=== PATIENT | male | born 1955 | race Two or more races ===

== ENCOUNTER → 2016-06-02 | Outpatient (CLI) | payer OTHER ==
--- NOTE | 2016-06-02 16:51 | RADRPT ---
PROCEDURE: XR Knees. CLINICAL INDICATION: Bilateral knee pain. TECHNIQUE: Total of six views. Frontal, patellar, and lateral views of both knees. COMPARISON: No prior study is available for comparison. FINDINGS: There is no fracture or dislocation. There is a small right knee joint effusion. There is no left knee joint effusion. There are degenerative changes with small osteophytes arising from all 3 joint compartment margins b ilaterally. There is right medial knee joint compartment narrowing. There is no lytic or blastic lesion. There is no radiopaque foreign body. IMPRESSION: 1. Moderate degenerative changes of the right knee. 2. Mild degenerative changes of the left knee. 3. Small right knee joint effusion. 4. Otherwise unremarkable images of both knees. RPTAT: QQ .Raheem Corral MD, Date Time Electronically viewed and signed by .Raheem Corral MD, on 06/02/2016 16:51 .R/
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
== END | disposition home or self-care (01) ==
LOC: HKI 17:14
DX: M25.561 Pain in right knee (principal); M25.562 Pain in left knee; M54.5 Low back pain; M17.11 Unilateral primary osteoarthritis, right knee; S83.241A Other tear of medial meniscus, current injury, right knee, initial encounter; I10 Essential (primary) hypertension; F29 Unspecified psychosis not due to a substance or known physiological condition; Z87.891 Personal history of nicotine dependence
CPT/HCPCS: 20610; 73562; Z7500; Z7610; G0463

== ENCOUNTER → 2016-06-30 | Outpatient (CLI) | payer OTHER ==
--- NOTE | 2016-07-01 03:35 | HKNOTE ---
DATE OF SERVICE: 06/30/2016 The patient comes in with his MRI scan for review. The cortisone injection I gave him into his knee at the last visit helped a great deal, but the swelling has come back. The knee is still about 60% improved pain-cueva since the injection. However, the knee continues to lock and feels unstable. An MRI scan of his right knee obtained on 05/02/[address] Lanny Krishnan as showing subtle undersurface tear of the junction of the posterior horn and body of the medial meniscus with tearin g extending into the meniscal body, moderately severe chondromalacia of the medial compartment with associated subchondral stenosis changes, chondromalacia patella with multiple fissures through the p atellar articular cartilage, moderate sized joint effusion with mild synovial hypertrophy, and a thi n superior plica. The patient continues to have significant symptoms. Symptoms are highly suggestive of a torn menisc us. The patient is advised that the MRI scan has at least a 5% chance of seeing pathology that is n ot there and of missing pathology that is there. My recommendation is that he have an arthroscopic operation on the knee since it will not improve un til the torn meniscus elements are removed. The procedure and some of the major possible complications were discussed with him in a fair amount of detail. The patient says that he would like to wait and see if the cortisone wears off at all. He will call my assistant program manager, Graeme, if and when he is ready to consider proceeding with arthroscopic surgery on the knee. Dictated By: CASSANDRA NICKERSON/GILDARDO Conf#: [id number] DID#: [id number]
== END | disposition home or self-care (01) ==
LOC: HKI 14:02
DX: M25.561 Pain in right knee (principal)
CPT/HCPCS: G0463

== ENCOUNTER → 2016-07-28 | Outpatient (CLI) | payer OTHER ==
[~2016-07-28] MED LIST: ATOR80TA75 PO; EZET10TA3 PO; FLUT16SP17 NASAL; GABA300C16 PO; METR500T14 PO; OMEP40CA6 PO; TAMS-14 PO; VENL150C94 PO
--- NOTE | 2016-07-28 18:06 | HKNOTE ---
DATE OF SERVICE: 07/28/2016 The patient comes in for preoperative evaluation for operative arthroscopy on his right knee on . He has been cleared for surgery by Dr. Candida Sharp. The procedure was discussed in a fair am ount of detail as well as postoperative course and he was given prescription to manage postoperative pain. Dictated By: CASSANDRA NICKERSON/GILDARDO Conf#: [id number] DID#: [id number]
== END | disposition home or self-care (01) ==
LOC: HKI 14:36
DX: Z01.818 Encounter for other preprocedural examination (principal); M25.461 Effusion, right knee
CPT/HCPCS: G0463

== ENCOUNTER 2016-07-29 08:47 | Day surgery (SDC) | payer OTHER ==
[~2016-07-29] VITALS: Ht 172.7 cm; Wt 81.5 kg
[2016-07-29] VITALS (12 sets, daily range): BP systolic 124–141; BP diastolic 77–89; PULSE 85–96; RESP 14–29; Ht 172.7 cm; Wt 81.5 kg
[~2016-07-29 08:47] MED LIST changes: -ATOR80TA75 PO; +EPHEDrine SULFATE 50 MG/5 ML SYG ONE; -EZET10TA3 PO; -FLUT16SP17 NASAL; -GABA300C16 PO; -METR500T14 PO; -OMEP40CA6 PO; -TAMS-14 PO; -VENL150C94 PO
[2016-07-29] MEDS ORDERED: METR500T14 PO (09:39)
[2016-07-29] MEDS ORDERED: VENL150C94 PO (09:39)
[2016-07-29] MEDS ORDERED: OMEP40CA6 PO (09:39)
[2016-07-29] MEDS ORDERED: ATOR80TA75 PO (09:40)
[2016-07-29] MEDS ORDERED: TAMS-14 PO (09:40)
[2016-07-29] MEDS ORDERED: EZET10TA3 PO (09:40)
[2016-07-29] MEDS ORDERED: FLUT16SP17 NASAL (09:41)
[2016-07-29] MEDS ORDERED: GABA300C16 PO (09:41)
[2016-07-29] MEDS ORDERED: ACETAMINOPHEN 1000MG/100ML IV 100 ML IVPB ONE (10:00)
[2016-07-29] MEDS ORDERED: LACTATED RINGER'S 1,000 ML IV* SCH (10:00)
[2016-07-29] MEDS ORDERED: LANSOPRAZOLE 30 MG CAP PO ONE (10:00)
[2016-07-29] MEDS ORDERED: ONDANSETRON 4 MG INJ IV ONE (10:00)
[2016-07-29] MEDS ORDERED: CELECOXIB 200 MG CAP PO ONE (10:00)
[2016-07-29] MEDS ORDERED: VANCOMYCIN 1 GM (PMX) 250 ML IVPB ONE (10:00)
[2016-07-29] MEDS ORDERED: oxyCODONE (CR) 10 MG TAB [oxyCONTIN] PO ONE (10:00)
[2016-07-29] MEDS ORDERED: DEXAMETHASONE 4 MG/ML 1 ML INJ IV ONE (10:00)
--- NOTE | 2016-07-29 11:47 | HPN ---
Date/Time of Note Date/Time of Note DATE: 07/29/16 TIME: 11:46 Interval H&P Admission Note Pt. seen H&P reviewed: No system changes FABIEN BUNCH PA-C Jul 29, 2016 11:47
[2016-07-29] MEDS ORDERED: ROPIVACAINE 0.5 % 30 ML VIAL ONE (12:01)
[2016-07-29] MEDS ORDERED: BUPIVACAINE 0.25%/EPI (SDV) 30 ML INJ ONE (12:01)
[2016-07-29] MEDS ORDERED: KETOROLAC 30 MG INJ ONE (12:02)
[2016-07-29] MEDS ORDERED: morphine SULFATE/PF (10 MG/10 ML) INJ ONE (12:02)
[2016-07-29] MEDS ORDERED: LIDOCAINE 2% (SDV) 5 ML INJ ONE (12:14)
[2016-07-29] MEDS ORDERED: PROPOFOL 20 ML ONE (12:14)
[2016-07-29] MEDS ORDERED: MEPERIDINE 100 MG INJ ONE (12:15)
[2016-07-29] MEDS ORDERED: MEPERIDINE 25 MG INJ IV PRN (13:00)
[2016-07-29] MEDS ORDERED: MIDAZOLAM 1 MG/ML 2 ML INJ IV PRN (13:00)
[2016-07-29] MEDS ORDERED: FENTAnyl 50 MCG/ML VIAL IV PRN ×2 (13:00)
[2016-07-29] MEDS ORDERED: METOCLOPRAMIDE 10 MG INJ IV PRN (13:00)
[2016-07-29] MEDS ORDERED: ONDANSETRON 4 MG INJ IV PRN ×2 (13:00→13:30)
[2016-07-29] MEDS ORDERED: DIPHENHYDRAMINE 50 MG INJ IV PRN (13:00)
[2016-07-29] MEDS ORDERED: morphine (1 MG/ML) 10ML SYRINGE IV PRN (13:00)
[2016-07-29] MEDS ORDERED: HYDROCODONE/APAP (10/325) TAB PO PRN (13:30)
[2016-07-29] MEDS ORDERED: morphine 10 MG INJ IV PRN (13:30)
[2016-07-29] MEDS ORDERED: HYDROCODONE/APAP (5/325) TAB PO PRN ×2 (13:30)
[2016-07-29] MEDS ORDERED: ACETAMINOPHEN 1000MG/100ML IV 100 ML IVPB SCH (13:30)
[2016-07-29] MEDS: morphine (1 MG/ML) 10ML SYRINGE IV PRN ×2 (13:39→13:54)
--- NOTE | 2016-07-29 14:28 | OPR ---
DATE OF OPERATION: 07/29/2016 PREOPERATIVE DIAGNOSES: 1. Torn medial meniscus of the right knee. 2. Degenerative arthritis of the right knee. POSTOPERATIVE DIAGNOSES: 1. Compound tears of the posterior two-thirds of the medial meniscus. 2. Advanced degenerative changes of the medial compartment of the knee. 3. Moderate degenerative changes of the lateral compartment of the knee and patellofemoral joint. PROCEDURE PERFORMED: 1. Diagnostic arthroscopy. 2. Partial medial meniscectomy. 3. Abrasion chondroplasty. 4. Partial lateral meniscectomy. SURGEON: Alexys Hay MD RN PSYCHIATRIC: NOÉ Pires ANESTHESIOLOGIST: Rom Watters MD FINDINGS AT SURGERY: The patella and trochlear groove appeared fairly normal in appearance. The la teral tibial plateau and lateral femoral condyle were quite markedly arthritic with exposed eburnate d subchondral bone in places and large areas of eroded articular cartilage. There were compound tea rs of the posterior horn of the medial meniscus including horizontal cleavage tears and vertical tea rs. The lateral meniscus showed compound degenerative changes along the entire medial edge of the m eniscus. The lateral femoral condyle showed extensive erosions on the weightbearing surface with sh eets of unstable articular cartilage. DESCRIPTION OF PROCEDURE: Under general anesthetic, the right leg was prepped and draped in the usu al sterile fashion. Standard inferomedial and inferolateral portals were used. The knee was system atically inspected and the above findings were noted. Using a variety of basket forceps and the motorized intra-articular shaver, a partial medial menisce ctomy was performed. The remaining meniscus was balanced and stable. Light abrasion chondroplasty was performed on unstable articular cartilage on the medial femoral condyle, as well as on the media l tibial plateau. The camera was moved to the lateral compartment. The cruciate ligaments were noted to be intact. T he lateral compartment appeared at first to be fairly normal in appearance with regard to the articu lar surfaces, but it soon became apparent that although there were some areas with good articular ca rtilage, there were others where the cartilage was eroded and unstable. The articular surface of th e tibia in particular showed quite marked degenerative changes. The lateral meniscus had multiple c ompound tears along its inner edge. Using a variety of basket forceps and the motorized intra-artic ular shaver, the edge was trimmed back until it was stable and smooth. At the end of the procedure, the knee was copiously irrigated to remove all contained fragments. A tourniquet was not used. There was no bleeding during the surgery. The wounds were closed using interrupted nylon. The usual sterile dressings were applied. The quinn ent was returned to recovery room in stable condition. There were no problems or complications as f ar as is known. Dictated By: ALEXYS NICKERSON/GILDARDO Conf#: [id number] DID#: [id number]
== END 2016-07-29 15:15 | disposition home or self-care (01) ==
LOC: SDS 08:47
DX: M23.221 Derangement of posterior horn of medial meniscus due to old tear or injury, right knee (principal); M17.11 Unilateral primary osteoarthritis, right knee; E78.5 Hyperlipidemia, unspecified; F41.8 Other specified anxiety disorders
CPT/HCPCS: 29880; J0131; J1100; J1885; J2175; J2270; J2274; J2405; J2795; J3370; Z7512; Z7610

== ENCOUNTER → 2016-08-02 | Outpatient (CLI) | payer OTHER ==
[~2016-08-02] MED LIST changes: +ATOR80TA75 PO; -EPHEDrine SULFATE 50 MG/5 ML SYG ONE; +EZET10TA3 PO; +FLUT16SP17 NASAL; +GABA300C16 PO; +METR500T14 PO; +OMEP40CA6 PO; +TAMS-14 PO; +VENL150C94 PO
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
== END | disposition home or self-care (01) ==
LOC: HKI 14:03
DX: M25.561 Pain in right knee (principal)
CPT/HCPCS: 20610; Z7500; Z7610; G0463

== ENCOUNTER → 2016-08-09 | Outpatient (CLI) | payer OTHER ==
--- NOTE | 2016-08-09 15:24 | PN ---
Date/Time of Note Date/Time of Note DATE: 08/09/16 TIME: 15:20 Outpatient Progress Note Chief Complaint Postop status post right knee arthroscopy HPI 60-year-old male presents today for postoperative visit status post diagnostic arthroscopy, partial medial and lateral meniscectomy as well as abrasion chondroplasty performed on 07/29/2016. Patient called into the office on 2016 stating that he was in severe pain. On his last postoperative visit on 08/02, cortisone injection was performed. Cortisone injections provided no relief. He was taking Nicolaus 10/325 mg for pain control and he states that it is not helping. Patient continues with antalgic gait. Pain is constant and ranges from a 6-8/10 on the pain scale. Denies any falls or repeat injury. Patient would like to pursue total knee arthroplasty at this time. Review of Systems Const: No Fever, no chills, no Fatigue, normal appetite, no diaphoresis. Resp: No SOB, no wheezing, no chest pain. CV: No chest pain, no palpitaions, no VARMA. Physical Exam Blood pressure is 135/84, temperature is 90.7, pulse is 106, respiratory rate is 12, height is 5 foot 8 inches, weight is 190 pounds General Appearance: well-developed, well-nourished, in mild acute distress. Right knee: Sutures are clean dry and intact. No complications to the wound on inspection. Patient is able to flex up to 115 with about 5 lag from full extension. No tenderness to palpation on exam today. Mild edema to the right knee. Antalgic gait on exam. Abnormal gait as well. Allergies Coded Allergies: No Known Allergy (Unverified , 07/29/16) Assessment/Plan * Suture removal performed today and Steri-Strips applied. * Prescription for Percocet 10/325 mg was provided for patient to take as needed every 6-8 hours #45 tablets on 08/05/2016 patient called in to office. Patient was advised to curing pickling packer prescription when he was last spoken to a patient has yet to curing pickling packer prescription. The prescription was provided for patient today. Naproxen 500 mg was also provided for the patient twice daily. He was previously taking Mobic 7.5 mg which is providing little to no relief. Advised to discontinue Mobic before starting naproxen. Patient denies any GI pain with medication. * Dr. Hay was present for examination and discussed with patient today that given he has had recent cortisone injection last week it would be a minimum of 2-3 months before pursuit of total knee arthroplasty would be performed. Information regarding the surgery was provided for the patient today and patient was advised to call in the future to schedule specific date in 2-3 months especially if he continues with severe constant pain and limited functionality. * Patient will follow-up as needed likely for preoperative examination when he is ready to pursue with total joint arthroplasty. * Prescription for outpatient physical therapy provided today but patient respectfully declines. Patient feels that physical therapy will not help him. Dr. Hay was present for examination and agrees with plan. Medications Home Meds Reported Medications Fluticasone Propionate* (Fluticasone Propionate* Nasal) 50 Mcg/[place] - 16 Gm [place].susp, 1 SPRAY NASAL DAILY, #1 BOTTLE TO EACH NOSTRIL 07/29/16 Gabapentin* (Gabapentin*) 300 Mg Capsule, 300 MG PO BID Y for PAIN, #60 CAP 07/29/16 Tamsulosin Hcl* (Flomax*) 0.4 Mg Cap.er.24h, 0.4 MG PO DAILY, CAP 07/29/16 Atorvastatin* (Atorvastatin*) 80 Mg Tablet, 80 MG PO QHS, #30 TAB 07/29/16 Ezetimibe* (Zetia*) 10 Mg Tablet, 10 MG PO HS, TAB 07/29/16 Omeprazole* (Omeprazole*) 40 Mg Capsule.dr, 40 MG PO DAILY, #30 CAP 07/29/16 Metronidazole* (Metronidazole*) 500 Mg Tablet, 500 MG PO DAILY, TAB 07/29/16 Venlafaxine Hcl* (Venlafaxine Hcl ER*) 150 Mg Cap.er.24h, 150 MG PO DAILY, CAP 07/29/16 FABIEN BUNCH PA-C Aug 09, 2016 15:24
== END | disposition home or self-care (01) ==
LOC: HKI 13:49
DX: Z47.1 Aftercare following joint replacement surgery (principal); Z96.651 Presence of right artificial knee joint; Z48.02 Encounter for removal of sutures

== ENCOUNTER → 2016-09-14 | Outpatient (CLI) | END | disposition home or self-care (01) | DX: M17.11 Unilateral primary osteoarthritis, right knee (principal); M17.12 Unilateral primary osteoarthritis, left knee ==

== ENCOUNTER → 2016-09-22 | Outpatient (CLI) | payer OTHER ==
[~2016-09-22] MED LIST changes: +CEPH500C PO; +OXYC10TA63 PO
--- NOTE | 2016-09-28 07:28 | HKNOTE ---
DATE OF SERVICE: 09/22/2016 scheduled to have a right total hip replacement on 09/27/2016. He is being cleared for surgery by Dr. Tayo Sharp. He did not give any blood for autotransfusion. He understands the risks associated with using hospital blood. He is agreeable to using hospital blood if needed. Numerous questions were asked and answered. Dictated By: Alexys Hay MD /jose f/alesha /Document#: [id number]
== END | disposition home or self-care (01) ==
LOC: HKI 14:33
DX: Z01.818 Encounter for other preprocedural examination (principal)
CPT/HCPCS: G0463

== ENCOUNTER 2016-09-27 05:15 | Inpatient (IN) | payer OTHER ==
[2016-09-27] VITALS (17 sets, daily range): BP systolic 104–142; BP diastolic 61–83; PULSE 72–89; RESP 12–22; Ht 172.7 cm; Wt 79.5 kg
[~2016-09-27] VITALS: Ht 172.7 cm; Wt 79.5 kg
[~2016-09-27 05:15] MED LIST changes: -CEPH500C PO; -OXYC10TA63 PO
[2016-09-27] MEDS: TRANEXAMIC ACID IRR SCH ×4 (06:00→08:20)
[2016-09-27] MEDS ORDERED: SOD CHLORIDE 0.9% IVPB ONE (06:00)
[2016-09-27] MEDS ORDERED: ONDANSETRON 4 MG INJ IV ONE (06:00)
[2016-09-27] MEDS ORDERED: TRANEXAMIC ACID IVPB ONE (06:00)
[2016-09-27] MEDS ORDERED: LACTATED RINGER'S 1,000 ML IV* SCH (06:00)
[2016-09-27] MEDS ORDERED: CELECOXIB 200 MG CAP PO ONE (06:00)
[2016-09-27] MEDS: KNEE PAIN COCKTAIL VANCO INJ SCH ×12 (06:00→08:20)
[2016-09-27] MEDS ORDERED: oxyCODONE (CR) 10 MG TAB [oxyCONTIN] PO ONE (06:00)
[2016-09-27] MEDS ORDERED: LANSOPRAZOLE 30 MG CAP PO ONE (06:00)
[2016-09-27] MEDS ORDERED: ACETAMINOPHEN 1000MG/100ML IV 100 ML IVPB ONE (06:00)
[2016-09-27] MEDS ORDERED: DEXAMETHASONE 4 MG/ML 1 ML INJ IV ONE (06:00)
[2016-09-27] MEDS: SOD CHLORIDE 0.9% IRR SCH ×4 (06:00→08:20)
[2016-09-27] MEDS ORDERED: VANCOMYCIN 1 GM (PMX) 250 ML IVPB ONE (06:09)
[2016-09-27] MEDS ORDERED: BACITRACIN 50000 UNITS INJ ONE (06:40)
[2016-09-27] MEDS ORDERED: POLYMYXIN B 500000 UNIT INJ ONE (06:51)
[2016-09-27] MEDS ORDERED: VANCOMYCIN 1 GM INJ ONE (06:51)
[2016-09-27] MEDS ORDERED: TOBRAMYCIN 1.2 GM POWDER ONE (06:52)
[2016-09-27] MEDS ORDERED: METHYLENE BLUE 1% 10 ML INJ ONE (06:52)
[2016-09-27] MEDS ORDERED: BUPIVACAINE 0.25%/EPI (SDV) 30 ML INJ ONE (06:52)
[2016-09-27] MEDS ORDERED: ROPIVACAINE 0.2% 100 ML ONE (06:52)
--- NOTE | 2016-09-27 07:09 | HPN ---
Date/Time of Note Date/Time of Note DATE: 09/27/16 TIME: 07:09 Interval H&P Admission Note Pt. seen H&P reviewed: No system changes FABIEN BUNCH PA-C Sep 27, 2016 07:09
[2016-09-27] MEDS ORDERED: PROPOFOL 20 ML ONE (07:11)
[2016-09-27] MEDS ORDERED: BUPIVACAINE 0.5%/EPI (SDV) 30 ML INJ ONE (07:11)
[2016-09-27] MEDS ORDERED: LIDOCAINE 2% (SDV) 5 ML INJ ONE (07:11)
[2016-09-27] MEDS ORDERED: OXYC10TA63 PO (07:18)
[2016-09-27] MEDS ORDERED: ROPIVACAINE 0.2% 100ML BAG INJ ONE (08:21)
[2016-09-27] MEDS ORDERED: EPHEDrine SULFATE 50 MG/5 ML SYG ONE (09:29)
[2016-09-27 10:25] LABS: SYN FLD MN % 82.9 &; SYN FLD PMN % 17.1 % (0.0-25.0); SYN FLD WBC 128 /cmm (0-150)
[2016-09-27] MEDS ORDERED: ROCURONIUM 50 MG INJ ONE (10:30)
[2016-09-27] MEDS ORDERED: MIDAZOLAM 1 MG/ML 2 ML INJ IV PRN (11:00)
[2016-09-27] MEDS ORDERED: METOCLOPRAMIDE 10 MG INJ IV PRN (11:00)
[2016-09-27] MEDS ORDERED: MEPERIDINE 25 MG INJ IV PRN (11:00)
[2016-09-27] MEDS ORDERED: EPHEDrine SULFATE 50 MG/5 ML SYG IV PRN (11:00)
[2016-09-27] MEDS ORDERED: HYDROmorphONE (0.2 MG/ML) 10ML SYG IV PRN ×3 (11:00)
[2016-09-27] MEDS ORDERED: ONDANSETRON 4 MG INJ IV PRN ×2 (11:00→16:30)
[2016-09-27] MEDS ORDERED: DIPHENHYDRAMINE 50 MG INJ IV PRN (11:00)
[2016-09-27] MEDS ORDERED: OXYCODONE/ACETAMINOPHEN (5/325) TAB PO PRN ×2 (11:00)
[2016-09-27] MEDS ORDERED: LABETALOL HCL 20MG INJ IV PRN (11:00)
[2016-09-27] MEDS ORDERED: FENTAnyl 50 MCG/ML VIAL IV PRN ×3 (11:00)
--- NOTE | 2016-09-27 11:09 | OPR ---
Date/Time of Note Date/Time of Note DATE: 09/27/16 TIME: 11:07 Operative Report Preoperative Diagnosis Severe right knee osteoarthritis Postoperative Diagnosis Severe degenerative right knee osteoarthritis Operation/Procedure Performed Right total knee arthroplasty Surgeon: CASSANDRA RAY MD optometry assistant: FABIEN BUNCH PA-C Anesthesia: general, epidural Estimated Blood Loss: 100 - 150 ml's Complications: None FABIEN BUNCH PA-C Sep 27, 2016 11:09
--- NOTE | 2016-09-27 11:15 | OPR ---
Date/Time of Note Date/Time of Note DATE: 09/27/16 TIME: 11:10 Operative Report Free Text/Dictation Date of Operation: [September 27, 2016] Surgeon: Alexys Hay MD Housekeeper Head: Fabien Bunch PA-C Anesthesiologist: [Dr. Watters] Preoperative Diagnosis: Exceedingly severe degenerative osteoarthritis of the [ right] knee. Postoperative Diagnosis: Exceedingly severe degenerative osteoarthritis of the right knee. Right Operation Performed: Total knee replacement (arthroplasty of the knee, condylar plateau medial and lateral compartments with patella resurfacing, CPT 82243). Justification for Surgery: The knee was found to have an end-stage osteoarthritis. The patient is a very active 60-year-old diffuse lifestyles markedly affected by the arthritic knee. An extensive course of conservative care has been tried prior to embarking on the knee replacement operation. There can be no reasonable expectation that any further conservative treatment will make any improvement to this patient's pain level and lifestyle. The risks and complications of the surgery were discussed with the patient at the preoperative visit as well as the risks and possible complications of blood transfusion using hospital blood. The patient is agreeable to using hospital blood if needed. Description of Procedure: The patient was given intravenous antibiotics 1 hour prior to surgery. An epidural anesthetic was initiated in the ICU holding area. The patient was taken to the operating room and given a light general anesthetic. The leg, foot, and ankle were prepared and draped in the usual sterile fashion. The center of the ankle was marked at the midpoint between the 2 malleoli with a sterile marking pen. A tourniquet around the thigh was inflated to 250 mm mmHg after the leg had been exsanguinated using an Esmarch bandage. The tourniquet was inflated at the initiation of procedure for a short period and was then again reinflated at the time of cementing the components parts. The total tourniquet time was 56 minute minutes. A longitudinal incision was made over the anterior aspect of the knee. The incision extended from the tibial tubercle to a point just above the patella. The medial capsule was exposed by sharp and blunt dissection, and was incised inch medial to the patella. A marking stitch was set on each side of the incision at the midpoint of the capsule so as to enable accurate reapproximation at the end of the operation. A vastus split was made in the vastus medialis extending from the superior pole of the patella for approximately 5 cm between the line with the muscle fibers. The ends of the muscle split at the patella were marked with a marking stitch on each side for later accurate reapproximation. The patella was reflected laterally and osteophytes around the brim of the patella were removed. Osteophytes along the lateral femoral condyle were removed so as to facilitate lateral reflection of the patella. Posterior medial osteophytes were removed on the lateral side as well, Sastry free of the lateral collateral ligament. Medial femoral osteophytes and posteromedial femoral osteophytes were also removed at this time. This allowed for the knee to be brought into a more normal alignment. A segment of bone was cut from the articular surface of the patella using a caliper to determine the exact thickness to be removed. The remaining thickness of the patella was 16mm mm. The knee was flexed, and the patella was displaced laterally without eversion. Osteophyte in the femoral notch were removed. The remnants of the medial and lateral menisci were excised and the cruciate ligaments were excised. The medial collateral ligament was elevated as an osteo -periosteal flap from the proximal tibia. The distal end of the medial collateral ligament remained attached to the tibia throughout the operation. The tibia was retracted forward with Hohmann retractor, inserted posterior to the midpoint of the proximal tibia. The tibial jig was set in place in such a way as to align longitudinally with the anterior tibial spine, with the junction of the middle and medial 2/3 of the patella tendon and with the posterior intercondylar eminence of the tibia. An AP and lateral x-ray was obtained with the ligament jig in place. This showed that the alignment was satisfactory after some slight adjustments were made. The posterior slope of the tibia was set at 6 degrees. The tibial cutting block was attached to the proximal tibia with 2 Steinmann pins. An external alignment eulalio was placed and the cutting block to confirm the alignment of the cutting block. An Renaldo Wing feeler gauge was now placed on the superior aspect of the cutting block to further confirm the posterior slope of the tibia in the depths of the cut to be made. An oscillating saw was used to remove an appropriate amount of bone from the proximal tibia with the healthy side being used to measure the cutting depth. The lateral femoral condyle of the distal femur was measured to determine the appropriate size for the femoral component. The anterior condyle of the femur was partially removed with a rongeur. A medium size cutting block was attached to the distal femur with 2 Steinmann pins through the pinholes in the block. The external alignment jig of this cutting block was lined up with the anterior surface of the femur and a central intercondylar hole for the intra -medullary eulalio was drilled into the hole and the alignment block. The block was removed. A long Water pik nozzle was used to flush fat from the intramedullary canal. The appropriately sized cutting block was now attached to the femur by means of intramedullary eulalio. The linking guide was inserted into the slot in the base of the femoral cutting block with the knee set at 90 degrees of flexion and with the linking guide set flush with the proximal tibial cut in order to set the appropriate rotational alignment on the femoral cutting block. Ligament balance was checked at this point and was found to be very satisfactory. Once the rotational alignment had been determined, and the ligaments found to be balanced, the femoral cutting block was secured to the distal femur with 2 Steinmann pins. The anterior and posterior cuts of the distal femur were made off the femoral cutting block. The cutting block was removed and a spacer block was used to measure the flexion gap which was found to be 12.5 mm. The same block size without the femoral element was used with the leg extension to determine the amount of distal femur to be removed in the transverse plane. A 5 degree distal cutting block was now set on the femoral entry intramedullary eulalio, and the eulalio was inserted into the intramedullary canal. The appropriate amount of bone to be removed was determined. The femoral cutting block was pinned to the anterior surface of the femur with 2 Steinmann pins. The appropriate amount of bone was resected off the distal femur to give an extension gap equal to the thickness of the flexion gap. The cut needed to be repeated after initial cut in order to produce an extension gap the same size of the flexion gap. By using the appropriate cutting blocks, the rest of the femoral cuts were made. The femoral trial component was installed and was found to fit perfectly. The femoral trial component was removed. The proximal tibia was sized, and the appropriate tibial tray selected. The central fixation hole in the tibia was made using the tibial tray template and the appropriate instruments. The femoral tibial trials and the trial tibial insert were installed, and the patella was prepared to accept the 35 mm sized dome component. The trial components were all removed. The tourniquet was inflated. Soft tissues around the knee, especially the posterior capsule, were injected with mixture of Naropin, Toradol, morphine, and clonidine. The cut surfaces of the bones were cleaned with pulsatile Water Jet lavage and thoroughly dried. Sclerotic bone surfaces were drilled with a 1/8-inch drill. The tibial trial component was installed with the methyl methacrylate cement followed by the femoral component and finally the patellar component. Cement was used on all 3 components. The cement was finger packed into the cut surfaces of the bone and pressurized with a rubber dam in order to get good interdigitation of the cement into the bone. A lateral x-ray of the knee was obtained while the cement was hardening with the anticipated appropriate spacer trial in place. This showed that the knee was in full extension. Once the cement was hard, all extraneous cement was removed. The cut edges of the medial capsule were held together at the midpoint with a towel clip, and the knee was put through a full range of motion. The patella was found to track satisfactorily. A lateral release was not required. At this point, the patella was round to track very well in the patellar groove of the femoral component. The knee was frequently irrigated with normal saline containing antibiotics with pulsatile lavage throughout the entire operation as a prophylactic measure against infection. Once the cement was hard, the tourniquet was released. Bleeding points were cauterized. The total tourniquet time was 56 minutes. The patient's vital signs remained stable throughout the operation. The permanent rotating bearing was installed. Superficial and deep Hemovac drains were set in place. The wound was closed using interrupted Vicryl on the capsule with FiberWire used strategic points such as the attachment of the distal ends of the vastus medialis split, and the tibial tendon was also attached to the osteo--periosteal flap with FiberWire. The rest of the medial capsule was closed with interrupted Vicryl. A subcuticular stitch was inserted and loreto were used on the skin. The usual sterile dressings were applied. A Javier-Perrin compression dressing was applied after sterile cooling pad had been set in place against the deep tissue by sterile cast padding. The patient's condition at the end of the procedure was satisfactory. Vital signs remained stable throughout the operation. The patient returned to the recovery room in stable condition. X-rays were obtained in the recovery room. Calf pumps were applied to both legs in the operating room. There were no problems or complications as far as we know. The sponge and instrument count were correct. Component Information: Knee Implant Type: LCS. 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 Total Tourniquet Time: 56 minutes Total Blood Loss: 150 cc Dictacted By: Alexys Hay MD Surgeon: ALEXYS HAY MD ice cream freezer assistant: FABIEN BUNCH PA-C Anesthesia: general, epidural Estimated Blood Loss: 100 - 150 ml's Complications: None ALEXYS HAY MD Sep 27, 2016 11:15
--- NOTE | 2016-09-27 11:19 | PDOCDIS ---
Discharge Instructions DIAGNOSIS Discharge Diagnosis Status post right total knee arthroplasty CONDITION Patient Condition: Stable HOME CARE INSTRUCTIONS: Diet Instructions: Regular ACTIVITY: Activity Restrictions: Slowly Increase Activity Rest between Activity Avoid heavy lifting No Sexual Activity Do not Drive Do not operate Machinery Do not operate Power Tool Avoid Heavy Housework Keep Limb Elevated (Use ice modalities while leg is elevated.) Weight Bearing (As tolerated with front wheeled walker) Bathing Restrictions: Shower (Using Tegaderm with pad. Apply pad prior to shower. After shower make sure areas completely dry before removing. Repeat the steps each day until loreto are removed postoperatively around 10 days.) FOLLOW UP/APPOINTMENTS Follow-up Plan 10/18/2016 at 2:15 PM FABIEN BUNCH PA-C Sep 27, 2016 11:19
[2016-09-27 11:23] LABS: SYN FLD SOURCE RIGHT KNEE
[2016-09-27 11:24] LABS: SYN FLD CLARITY HAZY; SYN FLD CRYSTALS NO CRYSTALS SEEN (None seen); SYN FLD VOLUME 7.5 mL (0-3.5)
[2016-09-27 11:25] LABS: SYN FLD COLOR LIGHT YELLOW
[2016-09-27] MEDS ORDERED: oxyCODONE 5 MG TAB PO PRN ×2 (11:30)
[2016-09-27] MEDS ORDERED: ASPIRIN (EC) 325 MG TAB PO ONE (11:30)
[2016-09-27] MEDS ORDERED: BETHANECHOL 25 MG TAB PO PRN (11:30)
[2016-09-27] MEDS ORDERED: BISACODYL 10 MG SUPP PR PRN ×2 (11:30→16:30)
[2016-09-27] MEDS ORDERED: NALOXONE (0.4 MG/ML) INJ IV PRN (11:30)
[2016-09-27] MEDS ORDERED: ZOLPIDEM 5 MG TAB PO PRN (11:30)
[2016-09-27] MEDS ORDERED: COUMADIN NOTE XX SCH (11:30)
[2016-09-27] MEDS ORDERED: SENNA/DOCUSATE NA (8.6MG/50MG) TAB PO PRN (11:30)
[2016-09-27] MEDS ORDERED: MAGNESIUM HYDROXIDE 30ML CUP PO PRN ×2 (11:30→16:30)
[2016-09-27] MEDS ORDERED: HYDROmorphONE 0.2 MG/ML PCA IV PRN (11:30)
[2016-09-27] MEDS ORDERED: NA PHOSPHATE/BIPHOS 133 ML ENEMA PR PRN (11:30)
[2016-09-27] MEDS ORDERED: MEPERIDINE 10 MG/ML 30 ML PCA IV PRN (11:30)
[2016-09-27] MEDS ORDERED: DIPHENHYDRAMINE 50 MG INJ IM PRN (11:30)
[2016-09-27] MEDS ORDERED: TRANEXAMIC ACID 800 MG in SOD CHLORIDE 0.9% 100 ML IVPB ONE ×4 (11:30)
[2016-09-27] MEDS ORDERED: DOCUSATE SODIUM 100 MG CAP PO ONE (11:30)
[2016-09-27] MEDS: ONDANSETRON 4 MG INJ IV SCH ×3 (12:00→23:13)
[2016-09-27] MEDS: CEFAZOLIN 1 GM/50 ML (PMX) 50 ML IVPB SCH ×2 (12:00→20:42)
[2016-09-27] MEDS: ACETAMINOPHEN 1000MG/100ML IV 100 ML IVPB SCH ×2 (12:06→20:02)
--- NOTE | 2016-09-27 12:53 | RADRPT ---
PROCEDURE: XR Knee. CLINICAL INDICATION: Postop knee replacement. TECHNIQUE: Right knee x-rays, 2 views. COMPARISON: 09/14/2016. FINDINGS: Knee arthroplasty hardware is now in place. Surgical drains are also present. Postoperative air an d edema are seen within the immediate surrounding soft tissues. Midline surgical loreto are in lyndsey ce. The knee joint is well maintained. IMPRESSION: Surgical changes compatible with knee arthroplasty. RPTAT: HLST .Gina Diaz MD, MD Date Time Electronically viewed and signed by .Gina Diaz MD, MD on 09/27/2016 12:53 .T/
--- NOTE | 2016-09-27 12:55 | RADRPT ---
PROCEDURE: XR Knee. CLINICAL INDICATION: Knee replacement. TECHNIQUE: Right knee x-rays, AP and cross-table lateral intraoperative views. COMPARISON: 09/14/2016. FINDINGS: Knee arthroplasty hardware is now in place within the distal femur and proximal tibia. Alignment is well maintained. Surgical instrumentation is seen within the anterior soft tissues. IMPRESSION: Surgical changes compatible with knee replacement. RPTAT: HLST .Gina Diaz MD, MD Date Time Electronically viewed and signed by .Gina Diaz MD, on 09/27/2016 12:55 .T/
[2016-09-27] MEDS: DEXTROSE 5%-LR 1,000 ML IV SCH ×2 (14:47→23:39)
[2016-09-27] MEDS ORDERED: DOCUSATE SODIUM 100 MG CAP PO PRN (16:30)
[2016-09-27] MEDS ORDERED: ACETAMINOPHEN 325 MG TAB PO PRN (16:30)
[2016-09-27] MEDS ORDERED: HYDROCODONE/APAP (5/325) TAB PO PRN ×2 (16:30)
[2016-09-27] MEDS ORDERED: ACETAMINOPHEN 650 MG SUPP PR PRN (16:30)
[2016-09-27] MEDS ORDERED: NACL 0.9% 3 ML SYG IV SCH (16:30)
--- NOTE | 2016-09-27 16:31 | HP ---
Date/Time of Note Date/Time of Note CONSULT NOTE DATE: 09/27/16 TIME: 16:25 Assessment/Plan VTE Prophylaxis VTE Prophylaxis Intervention: other (On aspirin for now. Anticoagulation per orthopedic surgeon.) Lines/Catheters IV Catheter Type (from Nrs): Peripheral IV Assessment/Plan Chief Complaint/Hosp Course Impression and plan 1. Right knee osteoarthritis status post right knee surgery. Continue with pain management as well as wound care per surgeon. Physical therapy per surgeon. 2. History of depression. Will resume patient on his antidepressant medication 3. History of dyslipidemia. Follow-up on fasting lipid panel. 5. BPH. Continue on Flomax Admission process 40 minutes Discussed plan of care with Dr. Mercado Problems: HPI/ROS Admit Date/Time Admit Date/Time Sep 27, 2016 at 05:15 Hx of Present Illness This is a 60-year-old male with history of dyslipidemia, depression, osteoarthritis, acid reflux, who came to [facility] for elective surgery for right knee total replacement. Patient does have reported extensive history of right knee osteoarthritis lasting 10 years intermittently. Patient currently status post right knee replacement. Denies any other associated symptoms. He did does appear to be comfortable and responding well to current analgesics. We will evaluate him for the aformentiond issues. ROS 12 point review of systems obtained entirely negative except that mentioned in history present illness PMH/Family/Social Past Medical History Medical/surgical history dyslipidemia, depression, osteoarthritis, acid reflux Family History Significant Family History: no pertinent family hx Social History Alcohol Use: none Smoking Status: Current every day smoker (Reports smoking 6 cigarettes a day) Drug Use: none Exam/Review of Systems Vital Signs Vitals Vital Signs Date Time Temp Pulse Resp B/P Pulse Ox O2 Delivery O2 Flow Rate FiO2 09/27/16 12:19 88 15 119/78 100 Nasal Cannula 2.0 09/27/16 11:18 98.6 Exam Constitutional: alert, oriented Psych: nl mood/affect Head: normocephalic Respiratory: clear to auscultation, normal air movement Cardiovascular: regular rate and rhythm Gastrointestinal: non-tender, soft Musculoskeletal: other (Right knee with drain in place and dressing as well as status post right knee surgery) 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: REPLENISHMENT SPECIALIST II-XII intact, nl mental status, nl speech Medications Medications Current Medications Dextrose/Lactated Ringer's (D5-Lr) 1,000 ml @ 80 mls/hr [id number] IV Last administered on 09/27/16 14:47; Admin Dose 80 MLS/HR; Start 09/27/16 at 11:09 Hydromorphone HCl (Dilaudid TANK COOPER) Q4PCA PRN IV SEVERE PAIN 8-10; Start 09/27/16 at 11:30; Stop 09/28/16 at 11:29 Meperidine HCl (Demerol TANK COOPER) Q4PCA PRN IV SEVERE PAIN 8-10; Start 09/27/16 at 11:30; Stop 09/28/16 at 11:29 Oxycodone HCl (Roxicodone) 20 mg Q3H PRN PO PAIN LEVEL 8-10; Start 09/27/16 at 11:30 Oxycodone HCl (Roxicodone) 10 mg Q3H PRN PO PAIN LEVEL 4-7; Start 09/27/16 at 11 :30 Oxycodone HCl 5 mg 5 mg Q3H PRN PO PAIN LEVEL 1-3; Start 09/27/16 at 11:30 Acetaminophen (Ofirmev 1000mg/ 100ml Iv) 100 ml @ 400 mls/hr Q8H IVPB Last administered on 09/27/16 12:06; Admin Dose 400 MLS/HR; Start 09/27/16 at 11:30; Stop 09/29/16 at 03:44 Zolpidem Tartrate (Ambien) 5 mg HS PRN PO INSOMNIA; Start 09/27/16 at 11:30 Ondansetron HCl 4 mg 4 mg Q6H IV Last administered on 09/27/16 12:00; Admin Dose 4 MG; Start 09/27/16 at 11:30; Stop 09/28/16 at 05:31 Cefazolin Sodium (Ancef 1 Gm/50 ml (Pmx)) 50 ml @ 100 mls/hr Q8H IVPB Last administered on 09/27/16 12:00; Admin Dose 100 MLS/HR; Start 09/27/16 at 11:30; Stop 09/28/16 at 03:59 Miscellaneous Information (Note) NOTE XX ; Start 09/27/16 at 11:30 Aspirin (Ecotrin) 325 mg BID PO ; Start 09/28/16 at 09:00 Celecoxib (Celebrex) 200 mg BID PO ; Start 09/28/16 at 09:00 Dexamethasone (Decadron) 4 mg DAILY@07 IV ; Start 09/28/16 at 07:00; Stop at 06:59 Pantoprazole (Protonix Tab) 40 mg DAILY@06 PO ; Start 09/29/16 at 06:00 Docusate Sodium/ Ferrous Fumarate (Gosia-Sequels) 1 tab BID PO ; Start 09/28/16 at 09:00 Docusate Sodium (Colace) 200 mg BID PO ; Start 09/28/16 at 09:00; Stop 10/01/16 at 08:59 Simethicone (Mylicon) 80 mg TID PRN PO DISTENSION/GAS/BLOATING; Start 09/27/16 at 11:30 Senna/Docusate Sodium (Senokot-S) 2 tab BID PRN PO CONSTIPATION; Start 09/27/16 at 11:30 Magnesium Hydroxide (Milk Of Mag) 30 ml HS PRN PO CONSTIPATION; Start 09/27/16 at 11:30 Bisacodyl (Dulcolax Supp) 10 mg DAILY PRN [place] CONSTIPATION; Start 09/27/16 at 11: 30 Sodium Biphosphate/ Sodium Phosphate (Fleet Enema) 133 ml DAILY PRN [place] CONSTIPATION; Start 09/27/16 at 11:30 Diphenhydramine HCl (Benadryl) 25 mg Q4H PRN IM ITCHING OR RASH; Start 09/27/16 at 11:30 Ketorolac Tromethamine (Toradol) 15 mg DAILY@06 PRN INJ ADMINSTER BY SURGEON ONLY; Start 09/28/16 at 06:00; Stop 10/02/16 at 05:59 Bupivacaine HCl/ Epinephrine Bitart (Marcaine 0.25%/ Epi (Sdv) 30 ml) 20 ml DAILY@06 PRN INJ ADMINSTER BY SURGEON ONLY; Start 09/28/16 at 06:00; Stop at 05:59 Naloxone HCl (Narcan) 0.2 mg Q2M PRN IV DECREASED REPIRATORY RATE; Start at 11:30 BRIA LITTLE Sep 27, 2016 16:31
[2016-09-27] MEDS: morphine 4 MG/ML VIAL IV PRN (21:53)
[2016-09-28 00:07] VITALS: BP 141/85; RESP 20
[2016-09-28] MEDS ORDERED: ZOLPIDEM 5 MG TAB PO ONE (00:30)
[2016-09-28] MEDS: morphine 4 MG/ML VIAL IV PRN (03:04)
[2016-09-28] MEDS: ACETAMINOPHEN 1000MG/100ML IV 100 ML IVPB SCH ×3 (03:47→20:07)
[2016-09-28] MEDS: CEFAZOLIN 1 GM/50 ML (PMX) 50 ML IVPB SCH (04:09)
[2016-09-28] MEDS: DEXTROSE 5%-LR 1,000 ML IV SCH (05:53)
[2016-09-28] MEDS: ONDANSETRON 4 MG INJ IV SCH (05:53)
[2016-09-28 05:59] VITALS: BP 147/85; PULSE 75; RESP 17
[2016-09-28] MEDS ORDERED: BUPIVACAINE 0.25%/EPI (SDV) 30 ML INJ INJ PRN (06:00)
[2016-09-28] MEDS ORDERED: KETOROLAC 15 MG INJ INJ PRN (06:00)
[2016-09-28] MEDS ORDERED: PANTOPRAZOLE 40 MG INJ IV SCH (06:00)
[2016-09-28] MEDS: DEXAMETHASONE 4 MG/ML 1 ML INJ IV SCH (06:32)
--- NOTE | 2016-09-28 07:19 | PN ---
Date/Time of Note Date/Time of Note DATE: 09/28/16 TIME: 07:17 Assessment/Plan VTE Prophylaxis VTE Prophylaxis Intervention: ambulation, SCD's, other (Aspirin 325 mg twice daily) Lines/Catheters IV Catheter Type (from Nrs): Peripheral IV Wilcox in Place (from Nrsg): No Assessment/Plan Assessment/Plan -Hemovac Removed Today. 200 cc output. -Pain Cocktail Given -Pain Meds as needed -Dress change performed today -OOB with PT -ASA/SCDs for DVT Prophylaxis -Continue monitoring with Internal Medicine -Patient Stable. Subjective 24 Hr Interval Summary 60-year-old male postop day 1 status post right total knee arthroplasty. Denies any pain to the right knee overnight. Patient had increased fatigue after surgery. Did not perform any physical therapy due to fatigue. Denies any nausea, vomiting. Denies any calf pain, chest pain/tightness or shortness of breath. Patient doing well status post surgery. Constitutional: no complaints Pain Control: well controlled Exam/Review of Systems Vital Signs Vitals Vital Signs Date Time Temp Pulse Resp B/P Pulse Ox O2 Delivery O2 Flow Rate FiO2 09/28/16 05:59 98.2 75 17 147/85 99 Nasal Cannula 2.0 Intake and Output 09/27/16 09/27/16 09/28/16 15:00 23:00 07:00 Intake Total 1950 ml 1171 ml 1470 ml Output Total 170 ml 1060 ml 1420 ml Balance 1780 ml 111 ml 50 ml Exam Free Text/Dictation -Hemovac: Intact. 200 cc output -Pain Cocktail Drains: Intact -Incision: Clean, Dry and Intact without any redness or drainage -5/5 Tibialis Anterior, EHL Gastrocnemius/Soleus and Peroneals -Patient is able to fully extend with active flexion up to 90. -Normal Sensation -Palpable DP/PT, Capillary Refill <2 secs -No Distal Edema -Negative Edgardo Sign/No calf pain -Toes Freely Movable Constitutional: alert, oriented, well developed FABIEN BUNCH PA-C Sep 28, 2016 07:19
[2016-09-28 08:00] VITALS: BP 130/91; RESP 20
[2016-09-28] MEDS: ASPIRIN (EC) 325 MG TAB PO SCH ×2 (09:21→20:40)
[2016-09-28] MEDS: CELECOXIB 200 MG CAP PO SCH ×2 (09:21→20:40)
[2016-09-28] MEDS: DOCUSATE SODIUM 100 MG CAP PO SCH ×2 (09:22→20:41)
[2016-09-28] MEDS: FERROUS FUMARATE (SR) TAB PO SCH ×2 (09:22→20:41)
[2016-09-28] MEDS: oxyCODONE 5 MG TAB PO PRN ×4 (09:54→20:42)
[2016-09-28 11:29] LABS: ALBUMIN 3.8 g/dl (3.3-4.9); ALBUMIN/GLOBULIN RATIO 1.58; BILIRUBIN,INDIRECT 0.2 mg/dl (0-1.1); BILIRUBIN,TOTAL 0.2 mg/dl (0.2-1.3); CALCIUM 9.6 mg/dl (8.4-10.2); CHOL/HDL RATIO 3.7 RATIO; CREATININE 0.77 mg/dl (0.61-1.24); MAGNESIUM 1.9 mg/dl (1.7-2.5); PHOSPHORUS 2.5 mg/dl (2.5-4.9); TOTAL PROTEIN 6.2 g/dl (6.1-8.1)
[2016-09-28 11:44] LABS: T3 UPTAKE 30.6 % (23.5-40.5)
[2016-09-28 11:56] LABS: POTASSIUM 5.5 mmol/L (3.5-5.1)
[2016-09-28 12:26] LABS: BASOPHILS % 0.1 % (0.0-2.0); HEMATOCRIT 35.9 % (42.0-52.0); HEMOGLOBIN 12.5 g/dl (14.0-18.0); LYMPHOCYTES # 1.2 10^3/ul (0.8-2.9); LYMPHOCYTES % 8.4 % (15.0-51.0); MEAN CORPUSCULAR HEMOGLOBIN 32.2 pg (29.0-33.0); MEAN CORPUSCULAR HGB CONC 34.8 g/dl (32.0-37.0); MEAN CORPUSCULAR VOLUME 92.5 fl (82.0-101.0); MEAN PLATELET VOLUME 11.1 fl (7.4-10.4); MONOCYTE # 0.6 10^3/ul (0.3-0.9); MONOCYTES % 4.5 % (0.0-11.0); NEUTROPHIL # 12.2 10^3/ul (1.6-7.5); NEUTROPHILS % 86.5 % (39.0-77.0); PLATELET COUNT 218 10^3/UL (140-415); RED BLOOD COUNT 3.88 10^6/ul (4.70-6.10); RED CELL DISTRIBUTION WIDTH 12.1 % (11.5-14.5); WHITE BLOOD COUNT 14.1 10^3/ul (4.8-10.8)
[2016-09-28 14:00] VITALS: BP 144/95; RESP 18
[2016-09-28] MEDS: SOD CHLORIDE 0.9% 1,000 ML IV SCH ×2 (14:39→15:25)
--- NOTE | 2016-09-28 14:43 | PN ---
Date/Time of Note Date/Time of Note DATE: 09/28/16 TIME: 14:40 Assessment/Plan VTE Prophylaxis VTE Prophylaxis Intervention: other (per orthopedic recs ) Lines/Catheters IV Catheter Type (from Nrsg): Peripheral IV Urinary Cath still in place: No Assessment/Plan Chief Complaint/Hosp Course Impression and plan 1. Right knee osteoarthritis status post right knee surgery. Continue with pain management as well as wound care per surgeon. Physical therapy per surgeon. 2. History of depression. continue on antidepressant medication. Patient is report he does follow-up with outpatient psychiatrist. Patient for out patient follow-up for this issue. 3. History of dyslipidemia. Stable at present. Will monitor 5. BPH. Continue on Flomax 6. Hyperkalemia. Will recheck level and provide with Kayexalate as needed. Disposition and plan: Follow-up on potassium level. Will provide Kayexalate if remains elevated. Discussed plan of care with Dr. Mercado Problems: Subjective 24 Hr Interval Summary Free Text/Dictation Resting at this time. No apparent distress and at this time. RN at bedside. Reports good pain control and right lower extremity Exam/Review of Systems Vital Signs Vitals Vital Signs Date Time Temp Pulse Resp B/P Pulse Ox O2 Delivery O2 Flow Rate FiO2 09/28/16 08:00 98.9 69 20 130/91 99 09/28/16 05:59 Nasal Cannula 2.0 Intake and Output 09/27/16 09/27/16 09/28/16 15:00 23:00 07:00 Intake Total 1950 ml 1171 ml 1470 ml Output Total 170 ml 1060 ml 1420 ml Balance 1780 ml 111 ml 50 ml Exam Constitutional: alert, oriented Psych: nl mood/affect Head: normocephalic Respiratory: clear to auscultation, normal air movement Cardiovascular: regular rate and rhythm Gastrointestinal: non-tender, soft Musculoskeletal: other (Right knee with drain in place and dressing as well as status post right knee surgery) 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: [employer] MEMBER II-XII intact, nl mental status, nl speech Results Result Diagram: 09/28/16 1054 09/28/16 1054 Results 24 hrs Laboratory Tests Test 09/28/16 10:54 White Blood Count 14.1 H Red Blood Count 3.88 L Hemoglobin 12.5 L Hematocrit 35.9 L Mean Corpuscular Volume 92.5 Mean Corpuscular Hemoglobin 32.2 Mean Corpuscular Hemoglobin Concent 34.8 Red Cell Distribution Width 12.1 Platelet Count 218 Mean Platelet Volume 11.1 H Neutrophils % 86.5 H Lymphocytes % 8.4 L Monocytes % 4.5 Eosinophils % 0.0 Basophils % 0.1 Nucleated Red Blood Cells % 0.0 Neutrophils # 12.2 H Lymphocytes # 1.2 Monocytes # 0.6 Eosinophils # 0.0 Basophils # 0.0 Nucleated Red Blood Cells # 0.0 Sodium Level 141 Potassium Level 5.5 H Chloride Level 101 Carbon Dioxide Level 29 Anion Gap 17 H Blood Urea Nitrogen 12 Creatinine 0.77 Glucose Level 117 Hemoglobin A1c 5.4 Calcium Level 9.6 Phosphorus Level 2.5 Magnesium Level 1.9 Total Bilirubin 0.2 Direct Bilirubin 0.00 Indirect Bilirubin 0.2 Aspartate Amino Transf (AST/SGOT) 19 Alanine Aminotransferase (ALT/SGPT) 28 Alkaline Phosphatase 98 Total Protein 6.2 Albumin 3.8 Globulin 2.40 Albumin/Globulin Ratio 1.58 Triglycerides Level 95 Cholesterol Level 162 LDL Cholesterol, Calculated 100 HDL Cholesterol 43 Cholesterol/HDL Ratio 3.7 Thyroid Stimulating Hormone (TSH) Pending Free Thyroxine Index 2.63 Thyroxine (T4) 8.6 Triiodothyronine (T3) Uptake 30.6 Medications Medications Current Medications Oxycodone HCl (Roxicodone) 20 mg Q3H PRN PO PAIN LEVEL 8-10 Last administered on 09/28/16 13:28; Admin Dose 20 MG; Start 09/27/16 at 11:30 Oxycodone HCl (Roxicodone) 10 mg Q3H PRN PO PAIN LEVEL 4-7 Last administered on 09/28/16 05:53; Admin Dose 10 MG; Start 09/27/16 at 11:30 Oxycodone HCl 5 mg 5 mg Q3H PRN PO PAIN LEVEL 1-3; Start 09/27/16 at 11:30 Acetaminophen (Ofirmev 1000mg/ 100ml Iv) 100 ml @ 400 mls/hr Q8H IVPB Last administered on 09/28/16 12:22; Admin Dose 400 MLS/HR; Start 09/27/16 at 11:30; Stop 09/29/16 at 03:44 Miscellaneous Information (Note) NOTE XX ; Start 09/27/16 at 11:30 Aspirin (Ecotrin) 325 mg BID PO Last administered on 09/28/16 09:21; Admin Dose 325 MG; Start 09/28/16 at 09:00 Celecoxib (Celebrex) 200 mg BID PO Last administered on 09/28/16 09:21; Admin Dose 200 MG; Start 09/28/16 at 09:00 Dexamethasone (Decadron) 4 mg DAILY@07 IV Last administered on 09/28/16 06:32; Admin Dose 4 MG; Start 09/28/16 at 07:00; Stop 10/01/16 at 06:59 Pantoprazole (Protonix Tab) 40 mg DAILY@06 PO ; Start 09/29/16 at 06:00 Docusate Sodium/ Ferrous Fumarate (Gosia-Sequels) 1 tab BID PO Last administered on 09/28/16 09:22; Admin Dose 1 TAB; Start 09/28/16 at 09:00 Docusate Sodium (Colace) 200 mg BID PO Last administered on 09/28/16 09:22; Admin Dose 200 MG; Start 09/28/16 at 09:00; Stop 10/01/16 at 08:59 Simethicone (Mylicon) 80 mg TID PRN PO DISTENSION/GAS/BLOATING; Start 09/27/16 at 11:30 Senna/Docusate Sodium (Senokot-S) 2 tab BID PRN PO CONSTIPATION; Start 09/27/16 at 11:30 Magnesium Hydroxide (Milk Of Mag) 30 ml HS PRN PO CONSTIPATION; Start 09/27/16 at 11:30 Bisacodyl (Dulcolax Supp) 10 mg DAILY PRN [place] CONSTIPATION; Start 09/27/16 at 11: 30 Sodium Biphosphate/ Sodium Phosphate (Fleet Enema) 133 ml DAILY PRN [place] CONSTIPATION; Start 09/27/16 at 11:30 Diphenhydramine HCl (Benadryl) 25 mg Q4H PRN IM ITCHING OR RASH; Start 09/27/16 at 11:30 Ketorolac Tromethamine (Toradol) 15 mg DAILY@06 PRN INJ ADMINSTER BY SURGEON ONLY; Start 09/28/16 at 06:00; Stop 10/02/16 at 05:59 Bupivacaine HCl/ Epinephrine Bitart (Marcaine 0.25%/ Epi (Sdv) 30 ml) 20 ml DAILY@06 PRN INJ ADMINSTER BY SURGEON ONLY; Start 09/28/16 at 06:00; Stop at 05:59 Naloxone HCl (Narcan) 0.2 mg Q2M PRN IV DECREASED REPIRATORY RATE; Start at 11:30 Ondansetron HCl (Zofran Inj) 4 mg Q6H PRN IV NAUSEA AND/OR VOMITING; Start 09/27 at 16:30 Acetaminophen (Tylenol Tab) 650 mg Q6H PRN PO PAIN LEVEL 1-3 OR FEVER; Start at 16:30 Acetaminophen (Tylenol Supp) 650 mg Q6H PRN [place] PAIN LEVEL 1-3 OR FEVER; Start 09/27/16 at 16:30 Acetaminophen/ Hydrocodone Bitart ([place] (5/325)) 1 tab Q6H PRN PO MODERATE PAIN LEVEL 4-6; Start 09/27/16 at 16:30 Acetaminophen/ Hydrocodone Bitart ([place] (5/325)) 2 tab Q6H PRN PO SEVERE PAIN LEVEL 7-10; Start 09/27/16 at 16:30 Morphine Sulfate (morphine) 2 mg Q4H PRN IV SEVERE PAIN LEVEL 7-10 Last administered on 09/28/16 03:04; Admin Dose 2 MG; Start 09/27/16 at 16:30 Docusate Sodium (Colace) 100 mg Q12H PRN PO CONSTIPATION; Start 09/27/16 at 16: 30 Magnesium Hydroxide (Milk Of Mag) 30 ml DAILY PRN PO CONSTIPATION; Start at 16:30 Bisacodyl (Dulcolax Supp) 10 mg DAILY PRN [place] CONSTIPATION; Start 09/27/16 at 16: 30 Pantoprazole (Protonix Iv) 40 mg DAILY@06 IV Last administered on 09/28/16 05: 53; Admin Dose 40 MG; Start 09/28/16 at 06:00 Zolpidem Tartrate 10 mg 10 mg HS PRN PO INSOMNIA; Start 09/28/16 at 21:00 Sodium Chloride (NS) 1,000 ml @ 80 mls/hr [id number] IV ; Start 09/28/16 at 13:00 BRIA LITTLE Sep 28, 2016 14:42
[2016-09-28 15:39] LABS: THYROID STIMULATING HORMONE 0.187 MIU/L (0.465-4.680)
[2016-09-28 20:15] VITALS: BP 130/84; RESP 22
[2016-09-28] MEDS: ZOLPIDEM 5 MG TAB PO PRN (22:30)
[2016-09-28] MEDS ORDERED: CEPASTAT LOZENGE MT PRN (23:00)
[2016-09-28] MEDS: GABAPENTIN 400 MG CAP PO SCH (23:18)
[2016-09-29] MEDS: oxyCODONE 5 MG TAB PO PRN ×4 (01:37→19:49)
[2016-09-29] MEDS: ACETAMINOPHEN 1000MG/100ML IV 100 ML IVPB SCH (03:15)
[2016-09-29 03:27] VITALS: BP 151/89; RESP 22
[2016-09-29 05:33] LABS: BASOPHILS % 0.2 % (0.0-2.0); EOSINOPHILS % 0.1 % (0.0-7.0); HEMATOCRIT 32.8 % (42.0-52.0); HEMOGLOBIN 11.1 g/dl (14.0-18.0); LYMPHOCYTES # 2.2 10^3/ul (0.8-2.9); LYMPHOCYTES % 23.7 % (15.0-51.0); MEAN CORPUSCULAR HEMOGLOBIN 31.5 pg (29.0-33.0); MEAN CORPUSCULAR HGB CONC 33.8 g/dl (32.0-37.0); MEAN CORPUSCULAR VOLUME 93.2 fl (82.0-101.0); MEAN PLATELET VOLUME 11.4 fl (7.4-10.4); MONOCYTES % 10.7 % (0.0-11.0); NEUTROPHIL # 6.1 10^3/ul (1.6-7.5); NEUTROPHILS % 65.1 % (39.0-77.0); PLATELET COUNT 179 10^3/UL (140-415); RED BLOOD COUNT 3.52 10^6/ul (4.70-6.10); RED CELL DISTRIBUTION WIDTH 12.1 % (11.5-14.5); WHITE BLOOD COUNT 9.4 10^3/ul (4.8-10.8)
[2016-09-29] MEDS: PANTOPRAZOLE (EC) 40 MG TAB PO SCH (06:02)
[2016-09-29] MEDS: DEXAMETHASONE 4 MG/ML 1 ML INJ IV SCH (06:02)
--- NOTE | 2016-09-29 07:43 | PN ---
Date/Time of Note Date/Time of Note DATE: 09/29/16 TIME: 07:41 Assessment/Plan VTE Prophylaxis VTE Prophylaxis Intervention: ambulation, SCD's, other (Aspirin 325 mg twice daily) Lines/Catheters IV Catheter Type (from Nrsg): Saline Lock Wilcox in Place (from Nrsg): No Assessment/Plan Assessment/Plan -Pain Cocktail Given -Pain Meds as needed -Dress change performed today -OOB with PT -ASA/SCDs for DVT Prophylaxis -Continue monitoring with Internal Medicine -Patient Stable. Plan to DC home tomorrow. Subjective 24 Hr Interval Summary 60-year-old male postop day 2 status post right total knee arthroplasty. Patient experience moderate to severe pain overnight. Pain medication is helped alleviate pain complaints. Has not been working on full extension while in the bed. Continues flexing. Patient was up and out of bed with physical therapy yesterday and states that he was able to walk around the hallways multiple times. Denies any calf pain. Denies any chest pain/tightness. Pain Control: moderate Exam/Review of Systems Vital Signs Vitals Vital Signs Date Time Temp Pulse Resp B/P Pulse Ox O2 Delivery O2 Flow Rate FiO2 09/29/16 03:27 98.6 81 22 151/89 100 09/28/16 05:59 Nasal Cannula 2.0 Intake and Output 09/28/16 09/28/16 09/29/16 15:00 23:00 07:00 Intake Total 620 ml 1060 ml 900 ml Output Total 1100 ml 800 ml Balance 620 ml -40 ml 100 ml Exam Free Text/Dictation -Pain Cocktail Drains: Intact -Incision: Clean, Dry and Intact without any redness or drainage -5/5 Tibialis Anterior, EHL Gastrocnemius/Soleus and Peroneals -5-10 lag from full extension. Patient able to actively flex up to 90 today. -Normal Sensation -Palpable DP/PT, Capillary Refill <2 secs -No Distal Edema -Negative Edgardo Sign/No calf pain -Toes Freely Movable Constitutional: alert, oriented, well developed Results Result Diagram: 09/29/16 0427 09/28/16 1420 FABIEN BUNCH PA-C Sep 29, 2016 07:43
[2016-09-29 08:25] VITALS: BP 142/82; RESP 18
[2016-09-29] MEDS: GABAPENTIN 400 MG CAP PO SCH ×2 (09:17→20:14)
[2016-09-29] MEDS: CELECOXIB 200 MG CAP PO SCH ×2 (09:17→20:14)
[2016-09-29] MEDS: FERROUS FUMARATE (SR) TAB PO SCH ×2 (09:17→20:13)
[2016-09-29] MEDS: ASPIRIN (EC) 325 MG TAB PO SCH ×2 (09:17→20:14)
[2016-09-29] MEDS: DOCUSATE SODIUM 100 MG CAP PO SCH ×2 (09:17→20:14)
[2016-09-29 11:24] LABS: CREATININE 0.75 mg/dl (0.61-1.24); POTASSIUM 3.9 mmol/L (3.5-5.1)
[2016-09-29] MEDS: morphine 4 MG/ML VIAL IV PRN (11:36)
[2016-09-29 15:07] VITALS: BP 117/73; RESP 18
--- NOTE | 2016-09-29 16:20 | PN ---
Date/Time of Note Date/Time of Note DATE: 09/29/16 TIME: 16:18 Assessment/Plan VTE Prophylaxis VTE Prophylaxis Intervention: other (Per orthopedic surgeon recommendation) Lines/Catheters IV Catheter Type (from Nrsg): Saline Lock Urinary Cath still in place: No Assessment/Plan Chief Complaint/Hosp Course Impression and plan 1. Right knee osteoarthritis status post right knee surgery. Continue with pain management as well as wound care per surgeon. Continue with physical therapy 2. History of depression. continue on antidepressant medication. Patient is report he does follow-up with outpatient psychiatrist. Patient for out patient follow-up for this issue. 3. History of dyslipidemia. Stable at present. Will monitor 5. BPH. Continue on Flomax 6. Hyperkalemia. Stable. Will monitor Disposition and plan: Continue with physical therapy and analgesics. Discharge planning Discussed plan of care with Dr. Mercado Problems: Subjective 24 Hr Interval Summary Free Text/Dictation Still reports having some pain on right knee. Exam/Review of Systems Vital Signs Vitals Vital Signs Date Time Temp Pulse Resp B/P Pulse Ox O2 Delivery O2 Flow Rate FiO2 09/29/16 15:07 98.4 77 18 117/73 95 09/28/16 05:59 Nasal Cannula 2.0 Intake and Output 09/28/16 09/28/16 09/29/16 15:00 23:00 07:00 Intake Total 620 ml 1060 ml 900 ml Output Total 1100 ml 800 ml Balance 620 ml -40 ml 100 ml Exam Constitutional: alert, oriented Psych: nl mood/affect Head: normocephalic Respiratory: clear to auscultation, normal air movement Cardiovascular: regular rate and rhythm Gastrointestinal: non-tender, soft Musculoskeletal: other (Yamil status post right knee surgery) 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: LOGGING ENGINEER II-XII intact, nl mental status, nl speech Results Result Diagram: 09/29/16 0427 09/29/16 0426 Results 24 hrs Laboratory Tests Test 09/29/16 04:26 09/29/16 04:27 Sodium Level 142 Potassium Level 3.9 Chloride Level 104 Carbon Dioxide Level 26 Anion Gap 16 Blood Urea Nitrogen 12 Creatinine 0.75 Glucose Level 85 Calcium Level 9.0 White Blood Count 9.4 # Red Blood Count 3.52 L Hemoglobin 11.1 L Hematocrit 32.8 L Mean Corpuscular Volume 93.2 Mean Corpuscular Hemoglobin 31.5 Mean Corpuscular Hemoglobin Concent 33.8 Red Cell Distribution Width 12.1 Platelet Count 179 Mean Platelet Volume 11.4 H Neutrophils % 65.1 Lymphocytes % 23.7 Monocytes % 10.7 Eosinophils % 0.1 Basophils % 0.2 Nucleated Red Blood Cells % 0.0 Neutrophils # 6.1 Lymphocytes # 2.2 Monocytes # 1.0 H Eosinophils # 0.0 Basophils # 0.0 Nucleated Red Blood Cells # 0.0 Medications Medications Current Medications Oxycodone HCl (Roxicodone) 20 mg Q3H PRN PO PAIN LEVEL 8-10 Last administered on 09/29/16 09:17; Admin Dose 20 MG; Start 09/27/16 at 11:30 Oxycodone HCl (Roxicodone) 10 mg Q3H PRN PO PAIN LEVEL 4-7 Last administered on 09/28/16 05:53; Admin Dose 10 MG; Start 09/27/16 at 11:30 Oxycodone HCl (Roxicodone) 5 mg Q3H PRN PO PAIN LEVEL 1-3; Start 09/27/16 at 11: 30 Miscellaneous Information (Note) NOTE XX ; Start 09/27/16 at 11:30 Aspirin (Ecotrin) 325 mg BID PO Last administered on 09/29/16 09:17; Admin Dose 325 MG; Start 09/28/16 at 09:00 Celecoxib (Celebrex) 200 mg BID PO Last administered on 09/29/16 09:17; Admin Dose 200 MG; Start 09/28/16 at 09:00 Dexamethasone (Decadron) 4 mg DAILY@07 IV Last administered on 09/29/16 06:02; Admin Dose 4 MG; Start 09/28/16 at 07:00; Stop 10/01/16 at 06:59 Pantoprazole (Protonix Tab) 40 mg DAILY@06 PO Last administered on 09/29/16 06: 02; Admin Dose 40 MG; Start 09/29/16 at 06:00 Docusate Sodium/ Ferrous Fumarate (Gosia-Sequels) 1 tab BID PO Last administered on 09/29/16 09:17; Admin Dose 1 TAB; Start 09/28/16 at 09:00 Docusate Sodium (Colace) 200 mg BID PO Last administered on 09/29/16 09:17; Admin Dose 200 MG; Start 09/28/16 at 09:00; Stop 10/01/16 at 08:59 Simethicone (Mylicon) 80 mg TID PRN PO DISTENSION/GAS/BLOATING; Start 09/27/16 at 11:30 Senna/Docusate Sodium (Senokot-S) 2 tab BID PRN PO CONSTIPATION; Start 09/27/16 at 11:30 Magnesium Hydroxide (Milk Of Mag) 30 ml HS PRN PO CONSTIPATION; Start 09/27/16 at 11:30 Bisacodyl (Dulcolax Supp) 10 mg DAILY PRN [place] CONSTIPATION; Start 09/27/16 at 11: 30 Sodium Biphosphate/ Sodium Phosphate (Fleet Enema) 133 ml DAILY PRN [place] CONSTIPATION; Start 09/27/16 at 11:30 Diphenhydramine HCl (Benadryl) 25 mg Q4H PRN IM ITCHING OR RASH; Start 09/27/16 at 11:30 Ketorolac Tromethamine (Toradol) 15 mg DAILY@06 PRN INJ ADMINSTER BY SURGEON ONLY; Start 09/28/16 at 06:00; Stop 10/02/16 at 05:59 Bupivacaine HCl/ Epinephrine Bitart (Marcaine 0.25%/ Epi (Sdv) 30 ml) 20 ml DAILY@06 PRN INJ ADMINSTER BY SURGEON ONLY; Start 09/28/16 at 06:00; Stop at 05:59 Naloxone HCl (Narcan) 0.2 mg Q2M PRN IV DECREASED REPIRATORY RATE; Start at 11:30 Ondansetron HCl (Zofran Inj) 4 mg Q6H PRN IV NAUSEA AND/OR VOMITING; Start 09/27 at 16:30 Acetaminophen (Tylenol Tab) 650 mg Q6H PRN PO PAIN LEVEL 1-3 OR FEVER; Start at 16:30 Acetaminophen (Tylenol Supp) 650 mg Q6H PRN [place] PAIN LEVEL 1-3 OR FEVER; Start 09/27/16 at 16:30 Acetaminophen/ Hydrocodone Bitart ([place] (5/325)) 1 tab Q6H PRN PO MODERATE PAIN LEVEL 4-6; Start 09/27/16 at 16:30 Acetaminophen/ Hydrocodone Bitart ([place] (5/325)) 2 tab Q6H PRN PO SEVERE PAIN LEVEL 7-10; Start 09/27/16 at 16:30 Morphine Sulfate (morphine) 2 mg Q4H PRN IV SEVERE PAIN LEVEL 7-10 Last administered on 09/29/16 11:36; Admin Dose 2 MG; Start 09/27/16 at 16:30 Docusate Sodium (Colace) 100 mg Q12H PRN PO CONSTIPATION; Start 09/27/16 at 16: 30 Magnesium Hydroxide (Milk Of Mag) 30 ml DAILY PRN PO CONSTIPATION; Start at 16:30 Bisacodyl (Dulcolax Supp) 10 mg DAILY PRN [place] CONSTIPATION; Start 09/27/16 at 16: 30 Zolpidem Tartrate (Ambien) 10 mg HS PRN PO INSOMNIA Last administered on 22:30; Admin Dose 10 MG; Start 09/28/16 at 21:00 Gabapentin (Neurontin) 400 mg BID PO Last administered on 09/29/16 09:17; Admin Dose 400 MG; Start 09/28/16 at 23:00 Phenol (Cepastat Lozenge) 1 lozenge Q1H PRN MT SORE THROAT Last administered on 09/28/16 23:18; Admin Dose 1 LOZENGE; Start 09/28/16 at 23:00 BRIA LITTLE Sep 29, 2016 16:20 BRIA LITTLE Sep 29, 2016 16:20
[2016-09-29 20:22] VITALS: BP 139/91; RESP 20
[2016-09-30] MEDS: ZOLPIDEM 5 MG TAB PO PRN (01:19)
[2016-09-30 03:30] VITALS: BP 130/80; RESP 20
[2016-09-30] MEDS: PANTOPRAZOLE (EC) 40 MG TAB PO SCH (06:00)
[2016-09-30 07:00] VITALS: BP 127/88; RESP 20
--- NOTE | 2016-09-30 07:46 | PN ---
Date/Time of Note Date/Time of Note DATE: 09/30/16 TIME: 07:45 Assessment/Plan VTE Prophylaxis VTE Prophylaxis Intervention: ambulation, SCD's, other (Aspirin 325 mg twice daily) Lines/Catheters IV Catheter Type (from Nrsg): Saline Lock Wilcox in Place (from Nrsg): No Assessment/Plan Assessment/Plan -Pain Cocktail Given. Catheter removed. Steri-Strips applied. -Pain Meds as needed -Dress change performed today -ASA for DVT Prophylaxis x 6 weeks outpatient discussed. -Continue monitoring as outpatient on discharge -Follow-up at scheduled postop outpatient appointment or sooner if there is any issue. -Tegaderm dressings given with specific instructions to use as outpatient to keep wound dry until loreto are moved around 10 days. -Patient Stable -Discharge to Home with home health Subjective 24 Hr Interval Summary 60-year-old male postop day 3 status post right total knee arthroplasty. Patient has improved in regards to pain complaints. No pain complaints today. Patient is up and walking throughout the hallways with physical therapy. After discussion yesterday, patient states that he has been working on range of motion including extension which has improved. Patient would like to go home today. Constitutional: no complaints Pain Control: well controlled Exam/Review of Systems Vital Signs Vitals Vital Signs Date Time Temp Pulse Resp B/P Pulse Ox O2 Delivery O2 Flow Rate FiO2 09/30/16 03:30 98.3 83 20 130/80 97 09/28/16 05:59 Nasal Cannula 2.0 Intake and Output 09/29/16 09/29/16 09/30/16 15:00 23:00 07:00 Intake Total 1230 ml 450 ml Output Total 930 ml 1000 ml Balance 300 ml -550 ml Exam Free Text/Dictation -Pain Cocktail Drains: Intact -Incision: Clean, Dry and Intact without any redness or drainage -5/5 Tibialis Anterior, EHL Gastrocnemius/Soleus and Peroneals -Normal Sensation -Palpable DP/PT, Capillary Refill <2 secs -No Distal Edema -Negative Edgardo Sign/No calf pain -Toes Freely Movable Constitutional: alert, oriented, well developed Results Result Diagram: 09/29/16 0427 09/29/16 0426 FABIEN BUNCH PA-C Sep 30, 2016 07:46
--- NOTE | 2016-09-30 07:50 | DS ---
Date/Time of Note Date/Time of Note DATE: 09/30/16 TIME: 07:48 Discharge Summary Admission/Discharge Info Admit Date/Time Sep 27, 2016 at 05:15 Discharge Date/Time 09/30/16 Discharge Diagnosis Status post right total knee arthroplasty Patient Condition: Stable Hx of Present Illness This is a 60-year-old male with history of dyslipidemia, depression, osteoarthritis, acid reflux, who came to [facility] [place] for elective surgery for right knee total replacement. Patient does have reported extensive history of right knee osteoarthritis lasting 10 years intermittently. Patient currently status post right knee replacement. Denies any other associated symptoms. He did does appear to be comfortable and responding well to current analgesics. We will evaluate him for the aformentiond issues. Hospital Course On the day of admission, the patient underwent right total knee arthroplasty Intraoperative complications: None Postoperative complications: None The patient was given prophylactic antibiotics and anticoagulants. On the day of surgery and first postoperative day patient was started on gait training and was taught usual restrictions following knee replacement Suction drain removed on the first postoperative day and the dressings were changed. The wound was found to be clean and healing well. There was no sign of infection. Pain cocktail given. On the second postoperative day, patient continued with inpatient PT. Dressings were changed. Wound was found to be clean and healing well. No signs of infection. Pain cocktail given. On the day of discharge, the wound was clean and healing well; there was no sign of infection. The dressings were changed. Discharge Temperature: 98.3 Discharge White Blood Cell Count: 9.4 Discharge Hemoglobin: 11.1 The patient was discharged home with home health. Arrangements were made for visiting nurses and home health/physical therapy. Tegaderm with pad also provided for patient. Instructions given on how to use to keep wound dry while showering. Patient may discontinue use of Tegaderm with pad after loreto have been removed around 10 days postoperatively. The patient will be seen in office at scheduled postoperative evaluation date given on their preoperative exam. Should patient complain of any problems prior to scheduled postoperative evaluation date, they may call into outpatient clinic to determine if they need to be scheduled at sooner appointment to be seen immediately if needed. Discharge medications: As per medication reconciliation form Diet: Same as preadmission diet. This is Fabien Farley PA-C dictating discharge summary for Dr. Alexys Hay. Home Meds Reported Medications Oxycodone Hcl* (Oxycontin*) 10 Mg Tab.sr.12h, 10 MG PO Q12, TAB 09/27/16 Fluticasone Propionate* (Fluticasone Propionate* Nasal) 50 Mcg/Redmond - 16 Gm [place].susp, 1 SPRAY NASAL DAILY, #1 BOTTLE TO EACH NOSTRIL 07/29/16 Gabapentin* (Gabapentin*) 300 Mg Capsule, 900 MG PO BID Y for PAIN, #60 CAP 07/29/16 Tamsulosin Hcl* (Flomax*) 0.4 Mg Cap.er.24h, 0.4 MG PO DAILY, CAP 07/29/16 Atorvastatin* (Atorvastatin*) 80 Mg Tablet, 40 MG PO QHS, #30 TAB 07/29/16 Ezetimibe* (Zetia*) 10 Mg Tablet, 10 MG PO HS, TAB 07/29/16 Omeprazole* (Omeprazole*) 40 Mg Capsule.dr, 40 MG PO DAILY, #30 CAP 07/29/16 Venlafaxine Hcl* (Venlafaxine Hcl ER*) 150 Mg Cap.er.24h, 150 MG PO DAILY, CAP 07/29/16 Discontinued Reported Medications Metronidazole* (Metronidazole*) 500 Mg Tablet, 500 MG PO DAILY, TAB 07/29/16 Follow-up Plan 10/18/2016 at 2:15 PM Primary Care Provider Not On Staff Doctor FABIEN BUNCH PA-C Sep 30, 2016 07:50
[2016-09-30] MEDS: oxyCODONE 5 MG TAB PO PRN ×2 (07:53→11:09)
[2016-09-30] MEDS: DEXAMETHASONE 4 MG/ML 1 ML INJ IV SCH (07:53)
[2016-09-30] MEDS: CELECOXIB 200 MG CAP PO SCH (08:51)
[2016-09-30] MEDS: DOCUSATE SODIUM 100 MG CAP PO SCH (08:52)
[2016-09-30] MEDS: ASPIRIN (EC) 325 MG TAB PO SCH (08:52)
[2016-09-30] MEDS: FERROUS FUMARATE (SR) TAB PO SCH (08:52)
[2016-09-30] MEDS: GABAPENTIN 400 MG CAP PO SCH (08:52)
[2016-09-30 09:18] LABS: BASOPHILS % 0.4 % (0.0-2.0); EOSINOPHILS % 0.3 % (0.0-7.0); HEMATOCRIT 35.6 % (42.0-52.0); LYMPHOCYTES # 2.7 10^3/ul (0.8-2.9); LYMPHOCYTES % 26.7 % (15.0-51.0); MEAN CORPUSCULAR HEMOGLOBIN 31.2 pg (29.0-33.0); MEAN CORPUSCULAR HGB CONC 33.7 g/dl (32.0-37.0); MEAN CORPUSCULAR VOLUME 92.5 fl (82.0-101.0); MEAN PLATELET VOLUME 10.3 fl (7.4-10.4); MONOCYTE # 1.1 10^3/ul (0.3-0.9); NEUTROPHIL # 6.1 10^3/ul (1.6-7.5); NEUTROPHILS % 61.1 % (39.0-77.0); PLATELET COUNT 190 10^3/UL (140-415); RED BLOOD COUNT 3.85 10^6/ul (4.70-6.10); RED CELL DISTRIBUTION WIDTH 12.2 % (11.5-14.5)
--- NOTE | 2016-09-30 11:42 | PN ---
Date/Time of Note Date/Time of Note DATE: 09/30/16 TIME: 11:38 Assessment/Plan VTE Prophylaxis VTE Prophylaxis Intervention: other (per orthopedic surgeon recommendations) Lines/Catheters IV Catheter Type (from Nrsg): Sal[place] Lock Urinary Cath still in place: No Assessment/Plan Chief Complaint/Hosp Course Impression and plan 1. Right knee osteoarthritis status post right knee surgery. Continue with pain management as well as wound care per surgeon. Continue with physical therapy 2. History of depression. continue on antidepressant medication. Patient is report he does follow-up with outpatient psychiatrist. Patient for out patient follow-up for this issue. 3. History of dyslipidemia. Stable at present. Will monitor 5. BPH. Continue on Flomax 6. Hyperkalemia. Stable. Will monitor Disposition and plan: plan for discharge today. medically stable Discussed plan of care with Dr. Mercado Problems: Subjective 24 Hr Interval Summary Free Text/Dictation walking with DEVELOPMENT REPRESENTATIVE. reports good pain control at this time Exam/Review of Systems Vital Signs Vitals Vital Signs Date Time Temp Pulse Resp B/P Pulse Ox O2 Delivery O2 Flow Rate FiO2 09/30/16 07:00 98.0 64 20 127/88 97 09/28/16 05:59 Nasal Cannula 2.0 Intake and Output 09/29/16 09/29/16 09/30/16 15:00 23:00 07:00 Intake Total 1230 ml 450 ml Output Total 930 ml 1000 ml Balance 300 ml -550 ml Exam Constitutional: alert, oriented Psych: nl mood/affect Head: normocephalic Respiratory: clear to auscultation, normal air movement Cardiovascular: regular rate and rhythm Gastrointestinal: non-tender, soft Musculoskeletal: other (drain removed. Area clean dry and intact on right hip 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: VAT TENDER II-XII intact, nl mental status, nl speech Results Result Diagram: 09/30/16 0859 09/29/16 0426 Results 24 hrs Laboratory Tests Test 09/30/16 08:59 White Blood Count 10.0 Red Blood Count 3.85 L Hemoglobin 12.0 L Hematocrit 35.6 L Mean Corpuscular Volume 92.5 Mean Corpuscular Hemoglobin 31.2 Mean Corpuscular Hemoglobin Concent 33.7 Red Cell Distribution Width 12.2 Platelet Count 190 Mean Platelet Volume 10.3 Neutrophils % 61.1 Lymphocytes % 26.7 Monocytes % 11.0 Eosinophils % 0.3 Basophils % 0.4 Nucleated Red Blood Cells % 0.0 Neutrophils # 6.1 Lymphocytes # 2.7 Monocytes # 1.1 H Eosinophils # 0.0 Basophils # 0.0 Nucleated Red Blood Cells # 0.0 Medications Medications Current Medications Oxycodone HCl (Roxicodone) 20 mg Q3H PRN PO PAIN LEVEL 8-10 Last administered on 09/30/16 11:09; Admin Dose 20 MG; Start 09/27/16 at 11:30 Oxycodone HCl (Roxicodone) 10 mg Q3H PRN PO PAIN LEVEL 4-7 Last administered on 09/28/16 05:53; Admin Dose 10 MG; Start 09/27/16 at 11:30 Oxycodone HCl (Roxicodone) 5 mg Q3H PRN PO PAIN LEVEL 1-3; Start 09/27/16 at 11: 30 Miscellaneous Information (Note) NOTE XX ; Start 09/27/16 at 11:30 Aspirin (Ecotrin) 325 mg BID PO Last administered on 09/30/16 08:52; Admin Dose 325 MG; Start 09/28/16 at 09:00 Celecoxib (Celebrex) 200 mg BID PO Last administered on 09/30/16 08:51; Admin Dose 200 MG; Start 09/28/16 at 09:00 Dexamethasone (Decadron) 4 mg DAILY@07 IV Last administered on 09/30/16 07:53; Admin Dose 4 MG; Start 09/28/16 at 07:00; Stop 10/01/16 at 06:59 Pantoprazole (Protonix Tab) 40 mg DAILY@06 PO Last administered on 09/29/16 06: 02; Admin Dose 40 MG; Start 09/29/16 at 06:00 Docusate Sodium/ Ferrous Fumarate ([place]-Sequels) 1 tab BID PO Last administered on 09/30/16 08:52; Admin Dose 1 TAB; Start 09/28/16 at 09:00 Docusate Sodium (Colace) 200 mg BID PO Last administered on 09/30/16 08:52; Admin Dose 200 MG; Start 09/28/16 at 09:00; Stop 10/01/16 at 08:59 Simethicone (Mylicon) 80 mg TID PRN PO DISTENSION/GAS/BLOATING; Start 09/27/16 at 11:30 Senna/Docusate Sodium (Senokot-S) 2 tab BID PRN PO CONSTIPATION Last administered on 09/29/16t 20:14; Admin Dose 2 TAB; Start 09/27/16 at 11:30 Magnesium Hydroxide (Milk Of Mag) 30 ml HS PRN PO CONSTIPATION; Start 09/27/16 at 11:30 Bisacodyl (Dulcolax Supp) 10 mg DAILY PRN [place] CONSTIPATION; Start 09/27/16 at 11: 30 Sodium Biphosphate/ Sodium Phosphate (Fleet Enema) 133 ml DAILY PRN [place] CONSTIPATION; Start 09/27/16 at 11:30 Diphenhydramine HCl (Benadryl) 25 mg Q4H PRN IM ITCHING OR RASH; Start 09/27/16 at 11:30 Ketorolac Tromethamine (Toradol) 15 mg DAILY@06 PRN INJ ADMINSTER BY SURGEON ONLY; Start 09/28/16 at 06:00; Stop 10/02/16 at 05:59 Bupivacaine HCl/ Epinephrine Bitart ([place] 0.25%/ Epi (Sdv) 30 ml) 20 ml DAILY@06 PRN INJ ADMINSTER BY SURGEON ONLY; Start 09/28/16 at 06:00; Stop at 05:59 Naloxone HCl (Narcan) 0.2 mg Q2M PRN IV DECREASED REPIRATORY RATE; Start at 11:30 Ondansetron HCl (Zofran Inj) 4 mg Q6H PRN IV NAUSEA AND/OR VOMITING; Start 09/27 at 16:30 Acetaminophen (Tylenol Tab) 650 mg Q6H PRN PO PAIN LEVEL 1-3 OR FEVER; Start at 16:30 Acetaminophen (Tylenol Supp) 650 mg Q6H PRN [place] PAIN LEVEL 1-3 OR FEVER; Start 09/27/16 at 16:30 Acetaminophen/ Hydrocodone Bitart ([place] (5/325)) 1 tab Q6H PRN PO MODERATE PAIN LEVEL 4-6; Start 09/27/16 at 16:30 Acetaminophen/ Hydrocodone Bitart ([place] (5/325)) 2 tab Q6H PRN PO SEVERE PAIN LEVEL 7-10; Start 09/27/16 at 16:30 Morphine Sulfate (morphine) 2 mg Q4H PRN IV SEVERE PAIN LEVEL 7-10 Last administered on 09/29/16 11:36; Admin Dose 2 MG; Start 09/27/16 at 16:30 Docusate Sodium (Colace) 100 mg Q12H PRN PO CONSTIPATION; Start 09/27/16 at 16: 30 Magnesium Hydroxide (Milk Of Mag) 30 ml DAILY PRN PO CONSTIPATION; Start at 16:30 Bisacodyl (Dulcolax Supp) 10 mg DAILY PRN [place] CONSTIPATION; Start 09/27/16 at 16: 30 Zolpidem Tartrate (Ambien) 10 mg HS PRN PO INSOMNIA Last administered on 01:19; Admin Dose 10 MG; Start 09/28/16 at 21:00 Gabapentin (Neurontin) 400 mg BID PO Last administered on 09/30/16 08:52; Admin Dose 400 MG; Start 09/28/16 at 23:00 Phenol (Cepastat Lozenge) 1 lozenge Q1H PRN MT SORE THROAT Last administered on 09/28/16 23:18; Admin Dose 1 LOZENGE; Start 09/28/16 at 23:00 BRIA LITTLE Sep 30, 2016 11:42
== END 2016-09-30 13:25 | disposition home health service (06) | DRG 470 ==
LOC: REC 05:15 → MS1 12:30
PROC: 0SRC0J9 Replacement of Right Knee Joint with Synthetic Substitute, Cemented, Open Approach (ICD-10-PCS; principal; 2016-09-27 07:30)
DX: M17.11 Unilateral primary osteoarthritis, right knee (principal); E87.5 Hyperkalemia; I10 Essential (primary) hypertension; E78.5 Hyperlipidemia, unspecified; Z87.891 Personal history of nicotine dependence; N40.0 Benign prostatic hyperplasia without lower urinary tract symptoms; F32.9 Major depressive disorder, single episode, unspecified; E78.00 Pure hypercholesterolemia, unspecified; F17.200 Nicotine dependence, unspecified, uncomplicated; K21.9 Gastro-esophageal reflux disease without esophagitis
CPT/HCPCS: 73560; 80048; 80053; 80061; 83036; 83735; 84100; 84132; 84436; 84443; 84479; 85025; 86850; 86900; 86901; 86920; 87070; 87075; 88304; 88311; 89060; 97003; 97110; 97116; 97164; 97166; 97530; C1776; C9113; J0131; J0690; J0735; J1100; J1885; J2270; J2274; J2405; J2795; J3370; J7030; J7120; J7121

== ENCOUNTER 2016-10-07 | Inpatient (IN) | payer OTHER ==
[~2016-10-07] MED LIST changes: -METR500T14 PO; +OXYC10TA63 PO
[2016-10-08 00:15] VITALS: BP 137/73; PULSE 103; RESP 18
[2016-10-08] MEDS ORDERED: FLUTICASONE 0.05% 16 GM NAS SPRAY NASAL PRN (01:00)
[2016-10-08] MEDS ORDERED: ZOLPIDEM 5 MG TAB PO PRN (01:00)
[2016-10-08] MEDS: DEXTROSE 5%-LR 1,000 ML IV SCH ×3 (01:43→12:10)
[2016-10-08] MEDS: morphine 2 MG INJ IV PRN ×3 (01:43→12:09)
[2016-10-08] MEDS ORDERED: VANCOMYCIN 1.5 GM in SOD CHLORIDE 0.9% 250 ML IVPB ONE (03:00)
[2016-10-08] MEDS: HYDROCODONE/APAP (10/325) TAB PO PRN ×4 (03:15→20:15)
[2016-10-08 05:51] LABS: BASOPHIL # 0.1 10^3/ul (0.0-0.1); BASOPHILS % 0.9 % (0.0-2.0); EOSINOPHILS # 0.4 10^3/ul (0.0-0.5); EOSINOPHILS % 5.3 % (0.0-7.0); HEMOGLOBIN 9.7 g/dl (14.0-18.0); LYMPHOCYTES # 1.7 10^3/ul (0.8-2.9); LYMPHOCYTES % 22.9 % (15.0-51.0); MEAN CORPUSCULAR HEMOGLOBIN 31.4 pg (29.0-33.0); MEAN CORPUSCULAR HGB CONC 32.3 g/dl (32.0-37.0); MEAN CORPUSCULAR VOLUME 97.1 fl (82.0-101.0); MEAN PLATELET VOLUME 9.9 fl (7.4-10.4); MONOCYTE # 0.8 10^3/ul (0.3-0.9); MONOCYTES % 10.1 % (0.0-11.0); NEUTROPHIL # 4.5 10^3/ul (1.6-7.5); NEUTROPHILS % 60.4 % (39.0-77.0); PLATELET COUNT 263 10^3/UL (140-415); RED BLOOD COUNT 3.09 10^6/ul (4.70-6.10); RED CELL DISTRIBUTION WIDTH 12.4 % (11.5-14.5); WHITE BLOOD COUNT 7.4 10^3/ul (4.8-10.8)
[2016-10-08] MEDS ORDERED: VANCOMYCIN IV PER PHARMACY XX SCH (06:00)
[2016-10-08 06:05] LABS: CALCIUM 8.6 mg/dl (8.4-10.2); CREATININE 0.96 mg/dl (0.61-1.24); POTASSIUM 4.7 mmol/L (3.5-5.1)
[2016-10-08 07:59] VITALS: BP 154/80; RESP 18
[2016-10-08] MEDS: DOXYCYCLINE 100 MG TAB PO SCH ×2 (08:16→20:24)
[2016-10-08] MEDS: VENLAFAXINE 75 MG TABLET PO SCH (08:16)
[2016-10-08] MEDS: GABAPENTIN 300 MG CAP PO SCH ×3 (08:16→20:24)
[2016-10-08 14:00] VITALS: BP 147/92; RESP 16
--- NOTE | 2016-10-08 14:07 | CONS ---
Date/Time of Note Date/Time of Note DATE: 10/08/16 TIME: 14:04 Assessment/Plan Assessment/Plan Additional Assessment/Plan 60 yo M sp TKA 8.1 presents with surgical site erythema, most likely cellulitis of incision. PLAN cont empiric vanc will attempt to reach [place] tomorrow to f/u doppler and blood cultures (their EMR was down today) cont home meds for depression, [facility] hospitalist service will cont to follow Consultation Date/Type/Reason Admit Date/Time Oct 07, 2016 at 00:00 Type of Consultation: hospitalist Reason for Consultation medical management Referring Provider: CASSANDRA RAY MD Hx of Present Illness 60 yo M with pmhx RR knee OA sp TKA on 8.1 admitted for R knee pain/swelling. Pt stated that he noticed some swelling of his R knee at the site of his surgical incision. Pt presented to OSH ([facility]) . Of note, on arrival to [place] had a temp of 100.5F, WBCs 9.1. As his surgeon Dr Ray is based at [facility], pt was transferred here for further management. Pt denies any subjective fevers or chills. Blood cultures and LE doppler were done prior to transfer but I do not yet have the results. Past Medical History depression, BPH, HL Past Surgical History R TKA Exam/Review of Systems Vital Signs Vitals Vital Signs Date Time Temp Pulse Resp B/P Pulse Ox O2 Delivery O2 Flow Rate FiO2 10/08/16 08:00 Nasal Cannula 2.0 10/08/16 07:59 98.5 83 18 154/80 100 Intake and Output 10/07/16 10/07/16 10/08/16 15:00 23:00 07:00 Intake Total 1075 ml Output Total 800 ml Balance 275 ml Exam nad, pleasant, sitting up in bed no mrg lungs clear abd soft R knee with bandage over actual incision line, erythema already retracted from border drawn at OSH ER 1+ edema to RLE below knee Results Result Diagram: 10/08/16 0507 10/08/16 0507 Results 24 hrs Laboratory Tests Test 10/08/16 05:07 White Blood Count 7.4 # Red Blood Count 3.09 L Hemoglobin 9.7 L Hematocrit 30.0 L Mean Corpuscular Volume 97.1 Mean Corpuscular Hemoglobin 31.4 Mean Corpuscular Hemoglobin Concent 32.3 Red Cell Distribution Width 12.4 Platelet Count 263 # Mean Platelet Volume 9.9 Neutrophils % 60.4 Lymphocytes % 22.9 Monocytes % 10.1 Eosinophils % 5.3 Basophils % 0.9 Nucleated Red Blood Cells % 0.0 Neutrophils # 4.5 Lymphocytes # 1.7 Monocytes # 0.8 Eosinophils # 0.4 Basophils # 0.1 Nucleated Red Blood Cells # 0.0 Sodium Level 140 Potassium Level 4.7 Chloride Level 105 Carbon Dioxide Level 32 H Anion Gap 8 Blood Urea Nitrogen 13 Creatinine 0.96 Glucose Level 102 Calcium Level 8.6 C-Reactive Protein High Sensitivity > 1.50 H Medications Medications Current Medications Dextrose/Lactated Ringer's (D5-Lr) 1,000 ml @ 125 mls/hr Q8H IV Last administered on 10/08/16 12:10; Admin Dose 125 MLS/HR; Start 10/08/16 at 01:00 Acetaminophen/ Hydrocodone Bitart ([place] (10/325)) 1 tab Q4H PRN PO PAIN Last administered on 10/08/16 07:01; Admin Dose 1 TAB; Start 10/08/16 at 01:00 Morphine Sulfate (morphine) 1 mg Q4H PRN IV PAIN LEVEL 7-10 Last administered on 10/08/16 12:09; Admin Dose 1 MG; Start 10/08/16 at 01:00 Doxycycline Hyclate (Vibramycin) 100 mg BID PO Last administered on 10/08/16 08:16; Admin Dose 100 MG; Start 10/08/16 at 09:00 Atorvastatin Calcium (Lipitor) 80 mg HS PO ; Start 10/08/16 at 21:00 EZETIMIBE (Zetia) 10 mg HS PO ; Start 10/08/16 at 21:00 Fluticasone Propionate (Flonase 0.05% Nasal) 1 spray BID PRN NASAL ALLEGIES; Start 10/08/16 at 01:00 Gabapentin (Neurontin) 300 mg TID PO Last administered on 10/08/16 12:09; Admin Dose 300 MG; Start 10/08/16 at 09:00 Tamsulosin HCl (Flomax) 0.4 mg DAILY@21 PO ; Start 10/08/16 at 21:00 Venlafaxine HCl 150 mg 150 mg DAILY PO Last administered on 8/12/17at 08:16; Admin Dose 150 MG; Start 10/08/16 at 09:00 Vancomycin HCl/ Sodium Chloride (Vancocin/NS) 250 ml @ 83.333 mls/ hr Q12H IVPB ; Start 10/08/16 at 15:00 Miscellaneous Information (*Rx Drug Level Order Reminder*) VANCOMYCIN TROUGH AT 1400 ONCE ONCE XX ; Start 10/09/16 at 14:00; Stop 10/09/16 at 14:01 MARY ALLEN MD Oct 08, 2016 14:07
[2016-10-08] MEDS: VANCOMYCIN 1.25 GM in SOD CHLORIDE 0.9% 250 ML IVPB SCH (15:04)
--- NOTE | 2016-10-08 18:01 | PN ---
DATE: 10/08/2016 CHIEF COMPLAINT: Swelling, redness, and increased pain of the right knee. HISTORY OF COMPLAINT: The patient underwent a right total knee replacement at the [facility] by Dr. Hay 9 days ago. Last night, he called to say that his leg was very swollen from the groin to the foot and very red. He was sent to the emergency room where he was diagnosed as having extensive cellulitis. His cellulitis was too extensive for an aspiration of the knee to be obtained before and giving him antibiotics. I discussed the case with the emergency room doctor and advised 1 g of vancomycin intravenously and 100 mg of doxycycline stat and twice a day. The patient was admitted to the [facility]. While he was in the emergency room, the doctor circled the entire cellulitic area. OBJECTIVE DATA: On physical examination, the cellulitis has markedly receded from the pen abby circling the cellulitic area. Photographs in the chart show just how far the cellulitis extended yesterday. The patient's pain is almost completely disappeared. The wound itself is dry and there is still some slight redness around the edges of the wound. The patient is able to fully extend his knee, lifted the leg from the bed and flexed the knee approximately 100 degrees active motion. Temperature is 98.5. White cell count of 7.4, hemoglobin is 9.7. MANAGEMENT: Continue with intravenous antibiotics. Physical therapy will be started today. I do not think there is a need for an Infectious Disease consultation at this time. Dictated By: Alexys Hay MD /jose f/qian /Document#: [id number]
[2016-10-08] MEDS: TAMSULOSIN (SR) 0.4 MG CAP PO SCH (20:24)
[2016-10-08] MEDS: ATORVASTATIN 80 MG TAB PO SCH (20:24)
[2016-10-08 20:52] VITALS: BP 165/90; RESP 20
[2016-10-08] MEDS: EZETIMIBE 10 MG TAB PO SCH (21:00)
[2016-10-09] MEDS: HYDROCODONE/APAP (10/325) TAB PO PRN ×5 (00:44→22:55)
[2016-10-09] MEDS: DEXTROSE 5%-LR 1,000 ML IV SCH ×2 (01:00→08:20)
[2016-10-09] MEDS: VANCOMYCIN 1.25 GM in SOD CHLORIDE 0.9% 250 ML IVPB SCH (03:20)
[2016-10-09 04:41] VITALS: BP 152/87; RESP 20
[2016-10-09] MEDS: PANTOPRAZOLE (EC) 40 MG TAB PO SCH (05:59)
[2016-10-09 07:41] VITALS: BP 141/79; RESP 18
[2016-10-09] MEDS: morphine 2 MG INJ IV PRN (08:19)
[2016-10-09] MEDS: GABAPENTIN 300 MG CAP PO SCH ×3 (08:19→20:52)
[2016-10-09] MEDS: DOXYCYCLINE 100 MG TAB PO SCH ×2 (08:19→20:51)
[2016-10-09] MEDS: VENLAFAXINE 75 MG TABLET PO SCH (08:19)
[2016-10-09 10:20] LABS: BASOPHIL # 0.1 10^3/ul (0.0-0.1); BASOPHILS % 0.6 % (0.0-2.0); EOSINOPHILS # 0.2 10^3/ul (0.0-0.5); EOSINOPHILS % 2.1 % (0.0-7.0); HEMATOCRIT 31.2 % (42.0-52.0); HEMOGLOBIN 10.3 g/dl (14.0-18.0); LYMPHOCYTES # 1.3 10^3/ul (0.8-2.9); LYMPHOCYTES % 14.9 % (15.0-51.0); MEAN PLATELET VOLUME 9.8 fl (7.4-10.4); MONOCYTE # 0.7 10^3/ul (0.3-0.9); MONOCYTES % 8.1 % (0.0-11.0); NEUTROPHIL # 6.6 10^3/ul (1.6-7.5); PLATELET COUNT 283 10^3/UL (140-415); RED BLOOD COUNT 3.32 10^6/ul (4.70-6.10); RED CELL DISTRIBUTION WIDTH 12.3 % (11.5-14.5); WHITE BLOOD COUNT 8.9 10^3/ul (4.8-10.8)
[2016-10-09] MEDS ORDERED: morphine 2 MG INJ IV PRN ×2 (10:30→13:00)
[2016-10-09 10:44] LABS: CREATININE 0.71 mg/dl (0.61-1.24); POTASSIUM 3.4 mmol/L (3.5-5.1)
[2016-10-09] MEDS ORDERED: POTASSIUM CHLORIDE (SR) 20 MEQ TAB PO STA (10:51)
--- NOTE | 2016-10-09 13:25 | CONS ---
Date/Time of Note Date/Time of Note DATE: 10/09/16 TIME: 13:24 Assessment/Plan Assessment/Plan Additional Assessment/Plan 60 yo M sp TKA 8.1 presents with surgical site erythema, most likely cellulitis of incision. PLAN downgrade vanc to PO Keflex RLE doppler to eval for DVT given swelling If doppler negative for DVT and pain control ok, no objection to discharge from hospitalist service cont home meds for depression, HL hospitalist service will cont to follow Consultation Date/Type/Reason Admit Date/Time Oct 07, 2016 at 00:00 Initial Consult Date Type of Consultation: hospitalist Referring Provider: CASSANDRA RAY MD 24 HR Interval Summary Free Text/Dictation The redness around pt's knee is MUCH improved. Wondering when he can go home. Exam/Review of Systems Vital Signs Vitals Vital Signs Date Time Temp Pulse Resp B/P Pulse Ox O2 Delivery O2 Flow Rate FiO2 10/09/16 07:41 99.1 102 18 141/79 95 10/09/16 07:19 Nasal Cannula 2.0 Intake and Output 10/08/16 10/08/16 10/09/16 15:00 23:00 07:00 Intake Total 625 ml 1625 ml 1130 ml Output Total 1200 ml 850 ml Balance 625 ml 425 ml 280 ml Exam pleasant, sitting up in bed no mrg lungs clear abd soft further improvement in R knee erythema, swelling unchanged Called [facility]. Blood cultures ng x 48 hours OF NOTE, LLE doppler negative, RLE doppler does not appear to have been done Results Result Diagram: 10/09/16 0949 10/09/16 0949 Results 24 hrs Laboratory Tests Test 10/09/16 09:49 White Blood Count 8.9 # Red Blood Count 3.32 L Hemoglobin 10.3 L Hematocrit 31.2 L Mean Corpuscular Volume 94.0 Mean Corpuscular Hemoglobin 31.0 Mean Corpuscular Hemoglobin Concent 33.0 Red Cell Distribution Width 12.3 Platelet Count 283 Mean Platelet Volume 9.8 Neutrophils % 74.0 Lymphocytes % 14.9 L Monocytes % 8.1 Eosinophils % 2.1 Basophils % 0.6 Nucleated Red Blood Cells % 0.0 Neutrophils # 6.6 Lymphocytes # 1.3 Monocytes # 0.7 Eosinophils # 0.2 Basophils # 0.1 Nucleated Red Blood Cells # 0.0 Sodium Level 138 Potassium Level 3.4 L Chloride Level 103 Carbon Dioxide Level 29 Anion Gap 9 Blood Urea Nitrogen 7 Creatinine 0.71 Glucose Level 119 Calcium Level 9.0 Medications Medications Current Medications Dextrose/Lactated Ringer's (D5-Lr) 1,000 ml @ 125 mls/hr Q8H IV Last administered on 10/09/16 08:20; Admin Dose 125 MLS/HR; Start 10/08/16 at 01:00 Acetaminophen/ Hydrocodone Bitart ([place] (10/325)) 1 tab Q4H PRN PO PAIN Last administered on 10/08/16 15:02; Admin Dose 1 TAB; Start 10/08/16 at 01:00 Doxycycline Hyclate (Vibramycin) 100 mg BID PO Last administered on 10/09/16 08:19; Admin Dose 100 MG; Start 10/08/16 at 09:00 Atorvastatin Calcium (Lipitor) 80 mg HS PO Last administered on 10/08/16 20:24 ; Admin Dose 80 MG; Start 10/08/16 at 21:00 EZETIMIBE (Zetia) 10 mg HS PO ; Start 10/08/16 at 21:00 Fluticasone Propionate (Flonase 0.05% Nasal) 1 spray BID PRN NASAL ALLEGIES; Start 10/08/16 at 01:00 Gabapentin (Neurontin) 300 mg TID PO Last administered on 10/09/16 12:46; Admin Dose 300 MG; Start 10/08/16 at 09:00 Tamsulosin HCl (Flomax) 0.4 mg DAILY@21 PO Last administered on 10/08/16 20:24 ; Admin Dose 0.4 MG; Start 10/08/16 at 21:00 Venlafaxine HCl 150 mg 150 mg DAILY PO Last administered on 10/09/16 08:19; Admin Dose 150 MG; Start 10/08/16 at 09:00 Vancomycin HCl/ Sodium Chloride (Vancocin/NS) 250 ml @ 83.333 mls/ hr Q12H IVPB Last administered on 10/09/16 03:20; Admin Dose 83.333 MLS/HR; Start 02/12 at 15:00 Miscellaneous Information (*Rx Drug Level Order Reminder*) VANCOMYCIN TROUGH AT 1400 ONCE ONCE XX ; Start 10/09/16 at 14:00; Stop 10/09/16 at 14:01 Pantoprazole (Protonix Tab) 40 mg DAILY@06 PO Last administered on 10/09/16 05 :59; Admin Dose 40 MG; Start 10/09/16 at 06:00 Acetaminophen/ Hydrocodone Bitart ([place] (10)) 2 tab Q4H PRN PO PAIN Last administered on 10/09/16 10:59; Admin Dose 2 TAB; Start 10/08/16 at 15:30 Morphine Sulfate (morphine) 2 mg Q4H PRN IV PAIN LEVEL 7-10 Last administered on 10/09/16 10:36; Admin Dose 2 MG; Start 10/09/16 at 10:30 MARY ALLEN MD Oct 09, 2016 13:25
--- NOTE | 2016-10-09 16:15 | RADRPT ---
PROCEDURE: US Lower extremity Venous. CLINICAL INDICATION: Right leg edema TECHNIQUE: Multiple sonographic images of the right lower extremity deep venous system was obtaine d utilizing grayscale, color-flow, compressive sonography and doppler imaging with augmentation. Th e images were reviewed on a PACS workstation. COMPARISON: None. FINDINGS: There is normal compressibility and flow within the right common femoral, femoral, posterior tibial, peroneal and popliteal veins. RPTAT: AA IMPRESSION: No sonographic evidence for deep venous thrombosis. .Kemar George MD, MD Date Time Electronically viewed and signed by .Kemar George MD, on 10/09/2016 16:15 .S/
[2016-10-09] MEDS: CEPHALEXIN 500 MG CAP PO SCH ×2 (17:30→22:55)
[2016-10-09 19:05] VITALS: BP 129/80; RESP 19
[2016-10-09] MEDS: EZETIMIBE 10 MG TAB PO SCH (20:52)
[2016-10-09] MEDS: ATORVASTATIN 80 MG TAB PO SCH (20:52)
[2016-10-09] MEDS: TAMSULOSIN (SR) 0.4 MG CAP PO SCH (20:52)
[2016-10-10 02:00] VITALS: BP 132/87; RESP 18
[2016-10-10] MEDS: HYDROCODONE/APAP (10/325) TAB PO PRN ×3 (03:25→11:50)
[2016-10-10] MEDS: PANTOPRAZOLE (EC) 40 MG TAB PO SCH (06:05)
[2016-10-10] MEDS: CEPHALEXIN 500 MG CAP PO SCH ×2 (06:05→11:45)
--- NOTE | 2016-10-10 07:19 | PN ---
Date/Time of Note Date/Time of Note DATE: 10/10/16 TIME: : Assessment/Plan VTE Prophylaxis VTE Prophylaxis Intervention: ambulation, other (Aspirin 325 mg twice daily.) Lines/Catheters IV Catheter Type (from Nrsg): Peripheral IV Assessment/Plan Assessment/Plan * Continues to improve with significant reduction in erythema/cellulitis to the right knee. * Most recent white blood cell count on 10/09/2016 is within normal limits at 8.9. * Likely patient will be discharged home today. Will notify Dr. Hay to confirm and then contact medical surgical floor with discharge planning. * Patient was advised to continue with physical therapy today. * Discussed plan with charge nurse, Raquel and she is aware that the floor will be contacted once confirmation with Dr. Hay is had. Subjective 24 Hr Interval Summary Free Text/Dictation 60-year-old male third day inpatient after readmission status post right total knee arthroplasty on 09/27/2016. Readmitted on 10/07/2016 for suspected cellulitis. Was put on regimen of IV vancomycin as well as doxycycline 100 mg. Also on Keflex 500 mg. Patient has been doing well with antibiotic therapy. Erythema to the right knee has significantly subsided. Pain has significantly improved. Patient continues range of motion in therapy while in the hospital. Patient is weightbearing independently and able to walk throughout the hallways per patient account. Denies any calf pain. Continues with edema to the right lower extremity. Venous Doppler performed in the hospital showing no signs of DVT. Continues to do well. Constitutional: no complaints Exam/Review of Systems Vital Signs Vitals Vital Signs Date Time Temp Pulse Resp B/P Pulse Ox O2 Delivery O2 Flow Rate FiO2 10/10/16 02:00 98.6 92 18 132/87 92 10/09/16 07:19 Nasal Cannula 2.0 Intake and Output 10/09/16 10/09/16 10/10/16 15:00 23:00 07:00 Intake Total 920 ml 1680 ml 1120 ml Output Total 1900 ml 1500 ml Balance 920 ml -220 ml -380 ml Exam * Mild erythema over the right knee. Significant reduction in erythema especially when compared to outlining of initial presentation of erythema. * Active flexion up to 100 with about 5 lag from full extension. Discomfort when patient reaches maximal point of flexion. * Noted edema to the right lower extremity compared to the left. Negative Homans sign. No calf pain on exam. Toes freely movable. 2+ pedal pulses. Normal sensory examination to light touch. * 5/5 strength on resistance with flexion and extension of the right lower extremity at the knee joint. Constitutional: alert, oriented, well developed Results Result Diagram: 10/09/16 0949 10/09/16 0949 Results 24 hrs Laboratory Tests Test 10/09/16 09:49 White Blood Count 8.9 # Red Blood Count 3.32 L Hemoglobin 10.3 L Hematocrit 31.2 L Mean Corpuscular Volume 94.0 Mean Corpuscular Hemoglobin 31.0 Mean Corpuscular Hemoglobin Concent 33.0 Red Cell Distribution Width 12.3 Platelet Count 283 Mean Platelet Volume 9.8 Neutrophils % 74.0 Lymphocytes % 14.9 L Monocytes % 8.1 Eosinophils % 2.1 Basophils % 0.6 Nucleated Red Blood Cells % 0.0 Neutrophils # 6.6 Lymphocytes # 1.3 Monocytes # 0.7 Eosinophils # 0.2 Basophils # 0.1 Nucleated Red Blood Cells # 0.0 Sodium Level 138 Potassium Level 3.4 L Chloride Level 103 Carbon Dioxide Level 29 Anion Gap 9 Blood Urea Nitrogen 7 Creatinine 0.71 Glucose Level 119 Calcium Level 9.0 Medications Medications Current Medications Acetaminophen/ Hydrocodone Bitart ([place] (10/325)) 1 tab Q4H PRN PO PAIN Last administered on 10/08/16 15:02; Admin Dose 1 TAB; Start 10/08/16 at 01:00 Doxycycline Hyclate (Vibramycin) 100 mg BID PO Last administered on 10/09/16 20:51; Admin Dose 100 MG; Start 10/08/16 at 09:00 Atorvastatin Calcium (Lipitor) 80 mg HS PO Last administered on 10/09/16 20:52 ; Admin Dose 80 MG; Start 10/08/16 at 21:00 EZETIMIBE (Zetia) 10 mg HS PO Last administered on 10/09/16 20:52; Admin Dose 10 MG; Start 10/08/16 at 21:00 Fluticasone Propionate (Flonase 0.05% Nasal) 1 spray BID PRN NASAL ALLEGIES; Start 10/08/16 at 01:00 Gabapentin (Neurontin) 300 mg TID PO Last administered on 10/09/16 20:52; Admin Dose 300 MG; Start 10/08/16 at 09:00 Tamsulosin HCl (Flomax) 0.4 mg DAILY@21 PO Last administered on 10/09/16 20:52 ; Admin Dose 0.4 MG; Start 10/08/16 at 21:00 Venlafaxine HCl (Effexor) 150 mg DAILY PO Last administered on 10/09/16 08:19 ; Admin Dose 150 MG; Start 10/08/16 at 09:00 Pantoprazole (Protonix Tab) 40 mg DAILY@06 PO Last administered on 10/10/16 06 :05; Admin Dose 40 MG; Start 10/09/16 at 06:00 Acetaminophen/ Hydrocodone Bitart ([place] (10/325)) 2 tab Q4H PRN PO PAIN Last administered on 10/10/16 06:05; Admin Dose 2 TAB; Start 10/08/16 at 15:30 Morphine Sulfate (morphine) 2 mg Q4H PRN IV PAIN LEVEL 7-10 Last administered on 10/09/16 10:36; Admin Dose 2 MG; Start 10/09/16 at 10:30 Cephalexin (Keflex) 500 mg Q6 PO Last administered on 10/10/16 06:05; Admin Dose 500 MG; Start 10/09/16 at 18:00 FABIEN BUNCH PA-C Oct 10, 2016 07:19
[2016-10-10 07:32] VITALS: BP 140/81; RESP 19
[2016-10-10] MEDS: VENLAFAXINE 75 MG TABLET PO SCH (09:09)
[2016-10-10] MEDS: GABAPENTIN 300 MG CAP PO SCH (09:09)
[2016-10-10] MEDS: DOXYCYCLINE 100 MG TAB PO SCH (09:09)
--- NOTE | 2016-10-10 10:47 | HP ---
Date/Time of Note Date/Time of Note DATE: 10/10/16 TIME: 10:36 THIS IS AN ADMISSION H&P FOR DR. RAY FOR THIS PATIENT ADMITTED ON 2016. Assessment/Plan VTE Prophylaxis VTE Prophylaxis Intervention: ambulation, other (Aspirin 325 mg twice daily) Lines/Catheters IV Catheter Type (from [facility]): Saline Lock Urinary Cath still in place: No Assessment/Plan Assessment/Plan * Dr. Ray has consulted with emergency room physician on initial presentation of patient's complaints. 1 g of IV vancomycin as well as doxycycline 100 mg oral route twice daily was recommended. Patient was initiated on antibiotic therapy. * Continue with physical therapy while inpatient in the hospital. * Pain medications as needed. * Continued monitoring for reduction of erythema/cellulitis to the right knee status post total knee arthroplasty. * Ongoing monitoring with internal medicine as well. HPI/ROS Admit Date/Time Admit Date/Time Oct 07, 2016 at 00:00 Hx of Present Illness This is the admission history and physical for Mr. Efren Gomez 60-year-old male that was admitted to [facility] via transfer from ambulance coming from [facility] on 10/07/2016. Patient was experiencing significant swelling to the right lower extremity as well as significant erythema surrounding the right knee. Patient is status post right total knee arthroplasty on 09/27/2016. Patient was doing well in regards to weightbearing as he was ambulating independently and was progressing with range of motion. Patient states that he feels that he "overdid it" in regards to at home therapy and exercises as he began experiencing significant swelling followed by pain. Denies any calf pain. Denied any chest pain/tightness. Significant erythema surrounding the right knee of about 10-12 inches in diameter. No discharge presentation. Exam/Review of Systems Vital Signs Vitals Vital Signs Date Time Temp Pulse Resp B/P Pulse Ox O2 Delivery O2 Flow Rate FiO2 10/10/16 07:32 99.0 101 19 140/81 97 10/09/16 07:19 Nasal Cannula 2.0 Intake and Output 10/09/16 10/09/16 10/10/16 15:00 23:00 07:00 Intake Total 920 ml 1680 ml 1120 ml Output Total 1900 ml 1500 ml Balance 920 ml -220 ml -380 ml Exam Exam Right knee is erythematous of about 10-12 inch diameter. Stiffness to the right knee. Moderate edema to the right lower extremity. Able to weight-bear but ongoing discomfort and pain. Constitutional: alert, oriented, well developed Labs Result Diagram: 10/09/1649 10/09/16948 Medications Medications Current Medications Acetaminophen/ Hydrocodone Bitart ([place] (10/325)) 1 tab Q4H PRN PO PAIN Last administered on 10/08/16 15:02; Admin Dose 1 TAB; Start 10/08/16 at 01:00 Doxycycline Hyclate (Vibramycin) 100 mg BID PO Last administered on 10/10/16 09:09; Admin Dose 100 MG; Start 10/08/16 at 09:00 Atorvastatin Calcium (Lipitor) 80 mg HS PO Last administered on 10/09/16 20:52 ; Admin Dose 80 MG; Start 10/08/16 at 21:00 EZETIMIBE (Zetia) 10 mg HS PO Last administered on 10/09/16 20:52; Admin Dose 10 MG; Start 10/08/16 at 21:00 Fluticasone Propionate (Flonase 0.05% Nasal) 1 spray BID PRN NASAL ALLEGIES; Start 10/08/16 at 01:00 Gabapentin (Neurontin) 300 mg TID PO Last administered on 10/10/16 09:09; Admin Dose 300 MG; Start 10/08/16 at 09:00 Tamsulosin HCl (Flomax) 0.4 mg DAILY@21 PO Last administered on 10/09/16 20:52 ; Admin Dose 0.4 MG; Start 10/08/16 at 21:00 Venlafaxine HCl (Effexor) 150 mg DAILY PO Last administered on 10/10/16 09:09 ; Admin Dose 150 MG; Start 10/08/16 at 09:00 Pantoprazole (Protonix Tab) 40 mg DAILY@06 PO Last administered on 10/10/16 06 :05; Admin Dose 40 MG; Start 10/09/16 at 06:00 Acetaminophen/ Hydrocodone Bitart ([place] (10/325)) 2 tab Q4H PRN PO PAIN Last administered on 10/10/16 06:05; Admin Dose 2 TAB; Start 10/08/16 at 15:30 Morphine Sulfate (morphine) 2 mg Q4H PRN IV PAIN LEVEL 7-10 Last administered on 10/09/16 10:36; Admin Dose 2 MG; Start 10/09/16 at 10:30 Cephalexin (Keflex) 500 mg Q6 PO Last administered on 10/10/16 06:05; Admin Dose 500 MG; Start 10/09/16 at 18:00 FABIEN BUNCH PA-C Oct 10, 2016 10:47
[2016-10-10] MEDS ORDERED: CEPH500C PO (10:54)
--- NOTE | 2016-10-10 11:17 | PN ---
Date/Time of Note Date/Time of Note DATE: 10/10/16 TIME: 11:13 Assessment/Plan VTE Prophylaxis VTE Prophylaxis Intervention: other (Per surgeon recommendation) Lines/Catheters IV Catheter Type (from Nrsg): Saline Lock Urinary Cath still in place: No Assessment/Plan Chief Complaint/Hosp Course Assessment and plan 1. Status post arthroplasty of right knee from degenerative osteoarthritis. Continue with analgesics. Continue with surgeon recommendations. 2. Cellulitis right lower extremity status post surgical intervention. On antibiotics. Improving at present. Disposition plan: Continue with analgesics. Physical therapy as well per surgeon. Continue antibiotics. Appears to be improving. Discharge planning. Discussed plan of care with Dr. Mercado Problems: Subjective 24 Hr Interval Summary Free Text/Dictation No reports of pain on right lower extremity at this time. Comfortable at present. Exam/Review of Systems Vital Signs Vitals Vital Signs Date Time Temp Pulse Resp B/P Pulse Ox O2 Delivery O2 Flow Rate FiO2 10/10/16 07:32 99.0 101 19 140/81 97 10/09/16 07:19 Nasal Cannula 2.0 Intake and Output 10/09/16 10/09/16 10/10/16 15:00 23:00 07:00 Intake Total 920 ml 1680 ml 1120 ml Output Total 1900 ml 1500 ml Balance 920 ml -220 ml -380 ml Exam Constitutional: alert, oriented Head: normocephalic Neck: supple, No jvd Respiratory: clear to auscultation Cardiovascular: regular rate and rhythm Gastrointestinal: non-tender, soft Musculoskeletal: swelling (Bilateral lower extremities) 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: BATCH AND FURNACE MANAGER II-XII intact, nl mental status, nl speech Skin: other (Erythema noted on right knee) Results Result Diagram: 10/09/1649 10/09/1649 Medications Medications Current Medications Acetaminophen/ Hydrocodone Bitart ([place] (10/325)) 1 tab Q4H PRN PO PAIN Last administered on 10/08/16 15:02; Admin Dose 1 TAB; Start 10/08/16 at 01:00 Doxycycline Hyclate (Vibramycin) 100 mg BID PO Last administered on 10/10/16 09:09; Admin Dose 100 MG; Start 10/08/16 at 09:00 Atorvastatin Calcium (Lipitor) 80 mg HS PO Last administered on 10/09/16 20:52 ; Admin Dose 80 MG; Start 10/08/16 at 21:00 EZETIMIBE (Zetia) 10 mg HS PO Last administered on 10/09/16 20:52; Admin Dose 10 MG; Start 10/08/16 at 21:00 Fluticasone Propionate (Flonase 0.05% Nasal) 1 spray BID PRN NASAL ALLEGIES; Start 10/08/16 at 01:00 Gabapentin (Neurontin) 300 mg TID PO Last administered on 10/10/16 09:09; Admin Dose 300 MG; Start 10/08/16 at 09:00 Tamsulosin HCl (Flomax) 0.4 mg DAILY@21 PO Last administered on 10/09/16 20:52 ; Admin Dose 0.4 MG; Start 10/08/16 at 21:00 Venlafaxine HCl (Effexor) 150 mg DAILY PO Last administered on 10/10/16 09:09 ; Admin Dose 150 MG; Start 10/08/16 at 09:00 Pantoprazole (Protonix Tab) 40 mg DAILY@06 PO Last administered on 10/10/16 06 :05; Admin Dose 40 MG; Start 10/09/16 at 06:00 Acetaminophen/ Hydrocodone Bitart ([place] (10/325)) 2 tab Q4H PRN PO PAIN Last administered on 10/10/16 06:05; Admin Dose 2 TAB; Start 10/08/16 at 15:30 Morphine Sulfate (morphine) 2 mg Q4H PRN IV PAIN LEVEL 7-10 Last administered on 10/09/16 10:36; Admin Dose 2 MG; Start 10/09/16 at 10:30 Cephalexin (Keflex) 500 mg Q6 PO Last administered on 10/10/16 06:05; Admin Dose 500 MG; Start 10/09/16 at 18:00 BRIA LITTLE Oct 10, 2016 11:17
[2016-10-10 11:52] LABS: BASOPHIL # 0.1 10^3/ul (0.0-0.1); BASOPHILS % 0.6 % (0.0-2.0); EOSINOPHILS # 0.2 10^3/ul (0.0-0.5); EOSINOPHILS % 2.5 % (0.0-7.0); HEMATOCRIT 32.6 % (42.0-52.0); LYMPHOCYTES # 1.3 10^3/ul (0.8-2.9); LYMPHOCYTES % 16.8 % (15.0-51.0); MEAN CORPUSCULAR HEMOGLOBIN 31.7 pg (29.0-33.0); MEAN CORPUSCULAR HGB CONC 33.7 g/dl (32.0-37.0); MEAN CORPUSCULAR VOLUME 93.9 fl (82.0-101.0); MONOCYTE # 0.7 10^3/ul (0.3-0.9); MONOCYTES % 9.2 % (0.0-11.0); NEUTROPHIL # 5.6 10^3/ul (1.6-7.5); NEUTROPHILS % 70.8 % (39.0-77.0); PLATELET COUNT 288 10^3/UL (140-415); RED BLOOD COUNT 3.47 10^6/ul (4.70-6.10); RED CELL DISTRIBUTION WIDTH 12.1 % (11.5-14.5); WHITE BLOOD COUNT 7.9 10^3/ul (4.8-10.8)
[2016-10-10 12:15] LABS: CALCIUM 9.5 mg/dl (8.4-10.2); CREATININE 0.78 mg/dl (0.61-1.24); POTASSIUM 4.4 mmol/L (3.5-5.1)
--- NOTE | 2016-10-10 13:37 | DS ---
Date/Time of Note Date/Time of Note DATE: 10/10/16 TIME: 13:33 Discharge Summary Admission/Discharge Info Admit Date/Time Oct 07, 2016 at 00:00 Discharge Date/Time Oct 10, 2016 at 12:42 Discharge Diagnosis Right knee cellulitis Patient Condition: Stable Hospital Course 60-year-old male admitted to the hospital for right knee cellulitis on 2016. He is status post right total knee arthroplasty on 09/27/2016. Patient was a transfer from [facility] as he presented to the emergency room with significant erythema and discomfort/pain to the right knee. Coordination was had with emergency room physician and Dr. Hay for patient to be transferred. Upon transfer patient was initiated on IV vancomycin 1 g as well as doxycycline 100 mg orally twice a day. Keflex 500 mg 4 times daily was also added. Within 24 hours of initiation of antibiotics, there was significant reduction in erythema which was initially around 10-12 inches in diameter at the surgical site. No discharge presentation. No fever. Patient was monitored over a course of 3 days as well as inpatient physical therapy performed. Patient had continued improvement in regards to range of motion and activity. Weightbearing was able to be performed independently without any discomfort on ambulation. Venous Doppler was also performed during inpatient stay which was negative for any DVT. He does continue with edema to the right lower extremity but denies any chest pain/tightness, calf pain, shortness of breath or signs of DVT outside of edema. Patient will be discharged home but advised to continue with Keflex 500 mg 4 times daily 7 days #28 tablets. Patient will follow-up in outpatient office for repeat evaluation and monitoring. Discharge temperature: 99 White blood cell count: 7.9 Hemoglobin: 11 Home Meds Active Scripts Cephalexin* (Cephalexin*) 500 Mg Capsule, 500 MG PO Q6, #28 CAP Prov:BRIA LITTLE 10/10/16 Reported Medications Oxycodone Hcl* (Oxycontin*) 10 Mg Tab.sr.12h, 10 MG PO Q12, TAB 09/27/16 Fluticasone Propionate* (Fluticasone Propionate* Nasal) 50 Mcg/[place] - 16 Gm [place].susp, 1 SPRAY NASAL DAILY, #1 BOTTLE TO EACH NOSTRIL 07/29/16 Gabapentin* (Gabapentin*) 300 Mg Capsule, 900 MG PO BID Y for PAIN, #60 CAP 07/29/16 Tamsulosin Hcl* (Flomax*) 0.4 Mg Cap.er.24h, 0.4 MG PO DAILY, CAP 07/29/16 Atorvastatin* (Atorvastatin*) 80 Mg Tablet, 40 MG PO QHS, #30 TAB 07/29/16 Ezetimibe* (Zetia*) 10 Mg Tablet, 10 MG PO HS, TAB 07/29/16 Omeprazole* (Omeprazole*) 40 Mg Capsule.dr, 40 MG PO DAILY, #30 CAP 07/29/16 Venlafaxine Hcl* (Venlafaxine Hcl ER*) 150 Mg Cap.er.24h, 150 MG PO DAILY, CAP 07/29/16 Follow-up Plan Follow-up within 1 week status post discharge from the hospital. Primary Care Provider Not On Staff Doctor Pending Labs Laboratory Tests Test 10/10/16 10:45 White Blood Count 7.910^3/ul (4.8-10.8) Red Blood Count 3.4710^6/ul (4.70-6.10) Hemoglobin 11.0g/dl (14.0-18.0) Hematocrit 32.6% (42.0-52.0) Mean Corpuscular Volume 93.9fl (82.0-101.0) Mean Corpuscular Hemoglobin 31.7pg (29.0-33.0) Mean Corpuscular Hemoglobin Concent 33.7g/dl (32.0-37.0) Red Cell Distribution Width 12.1% (11.5-14.5) Platelet Count 77347^3/UL (140-415) Mean Platelet Volume 10.0fl (7.4-10.4) Neutrophils % 70.8% (39.0-77.0) Lymphocytes % 16.8% (15.0-51.0) Monocytes % 9.2% (0.0-11.0) Eosinophils % 2.5% (0.0-7.0) Basophils % 0.6% (0.0-2.0) Nucleated Red Blood Cells % 0.0/100WBC (0.0-0.0) Neutrophils # 5.610^3/ul (1.6-7.5) Lymphocytes # 1.310^3/ul (0.8-2.9) Monocytes # 0.710^3/ul (0.3-0.9) Eosinophils # 0.210^3/ul (0.0-0.5) Basophils # 0.110^3/ul (0.0-0.1) Nucleated Red Blood Cells # 0.010^3/ul (0.0-0.0) Sodium Level 143mmol/L (135-144) Potassium Level 4.4mmol/L (3.5-5.1) Chloride Level 99mmol/L (97-110) Carbon Dioxide Level 33mmol/L (21-31) Anion Gap 15 (8-16) Blood Urea Nitrogen 9mg/dl (7-20) Creatinine 0.78mg/dl (0.61-1.24) Glucose Level 130mg/dl (70-220) Calcium Level 9.5mg/dl (8.4-10.2) FABIEN BUNCH PA-C Oct 10, 2016 13:37
== END 2016-10-10 12:42 | disposition home health service (06) | DRG 863 ==
LOC: MS1
DX: T81.4XXA Infection following a procedure, initial encounter (principal); L03.115 Cellulitis of right lower limb; M96.89 Other intraoperative and postprocedural complications and disorders of the musculoskeletal system; F32.9 Major depressive disorder, single episode, unspecified; E78.5 Hyperlipidemia, unspecified; Y83.8 Other surgical procedures as the cause of abnormal reaction of the patient, or of later complication, without mention of misadventure at the time of the procedure; L53.8 Other specified erythematous conditions; Z96.651 Presence of right artificial knee joint; Z79.82 Long term (current) use of aspirin; Z79.899 Other long term (current) drug therapy
CPT/HCPCS: 80048; 85025; 86140; 87081; 93971; 97116; 97162; 97530; J2270; J3370; J7050; J7121

== ENCOUNTER → 2016-10-18 | Outpatient (CLI) | payer OTHER ==
[~2016-10-18] MED LIST changes: +CEPH500C PO
--- NOTE | 2016-10-18 15:18 | PN ---
Date/Time of Note Date/Time of Note DATE: 10/18/16 TIME: 15:13 Outpatient Progress Note Chief Complaint 3 weeks status post right total knee arthroplasty HPI 60-year-old male presents today for postoperative appointment 3 weeks status post right total knee arthroplasty. Patient states that he is very happy status post surgery as his pain has significantly improved. He does continue to experience some discomfort to the right knee. 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 He also feels significant laxity along the LCL ligament with motion. Patient's biggest concern is stiffness to the knee usually when he has been sitting for extended amount of time and has to rise from seated position. Also experiences stiffness in the morning that he feels is muscular. Denies any calf pain, shortness of breath, chest pain/ tightness. Patient is no longer using assisted ambulatory device and is walking independently. Patient states that his range of motion has significantly improved since discharge from the hospital. Review of Systems Const: No Fever, no chills, no Fatigue, normal appetite, no diaphoresis. Resp: No SOB, no wheezing, no chest pain. CV: No chest pain, no palpitaions, no VAMRA. Physical Exam Blood pressure is 121/70, temperature is 98.6, pulse is 102, respiratory rate is 12, height is 5 foot 8 inches, weight is 185 pounds General Appearance: well-developed, well-nourished, in no acute distress. Right knee: Baljeet are clean dry and intact. No sign of infection on inspection to the wound. Patient is able to bit bender to 120 and fully extend the knee. 5/5 strength on resistance. No tenderness to palpation. Normal sensory examination to light touch. Negative Homans sign. Toes are freely movable. Gait showing slight limp status post surgery. Allergies Coded Allergies: No Known Allergy (Unverified , 09/27/16) Assessment/Plan Problems: (1) Status post right knee replacement -Wound healing well after staple removal. No signs of infection. Staple removal performed today followed by Steri-Strip application. -Continue ASA 325 mg twice daily for DVT prophylaxis until 6 weeks status post surgery. -No signs of DVT. -Patient progressing well. -Follow-up at 6 week postop appointment. X-rays will be performed at 6 weeks postoperative appointment. -Patient made aware that they may follow-up sooner, should they experience any issues or complications as we will be glad to see them. -Order for outpatient physical therapy given today with focus on improved range of motion. -Antibiotic prophylaxis card provided today Discussion had with patient today that given his extensive varus deformity for an extended amount of time it is expected that patient would have increased laxity to the lateral collateral ligament. Continue working with outpatient physical therapy as far as gait training and correction of limp as he is so used to walking a certain way and now that his knee is corrected he has difficulty going back to his normal gait. Antibiotic card provided for patient. Patient made aware that dental prophylaxis will be necessary prior to any dental procedure for the remainder of their lifetime. Patient is aware that they must contact their dentist prior to any procedure to inform them of previous joint replacement with prosthesis implant so appropriate antibiotic may be prescribed to lower risk of joint infection status post surgery. Card will also serve as confirmation should patient be traveling and have to go through security such as at an airport. Follow-up 3 weeks. Medications Home Meds Active Scripts Cephalexin* (Cephalexin*) 500 Mg Capsule, 500 MG PO Q6, #28 CAP Prov:AANBELBRIA 10/10/16 Reported Medications Oxycodone Hcl* (Oxycontin*) 10 Mg Tab.sr.12h, 10 MG PO Q12, TAB 09/27/16 Fluticasone Propionate* (Fluticasone Propionate* Nasal) 50 Mcg/[place] - 16 Gm [place].susp, 1 SPRAY NASAL DAILY, #1 BOTTLE TO EACH NOSTRIL 07/29/16 Gabapentin* (Gabapentin*) 300 Mg Capsule, 900 MG PO BID Y for PAIN, #60 CAP 07/29/16 Tamsulosin Hcl* (Flomax*) 0.4 Mg Cap.er.24h, 0.4 MG PO DAILY, CAP 07/29/16 Atorvastatin* (Atorvastatin*) 80 Mg Tablet, 40 MG PO QHS, #30 TAB 07/29/16 Ezetimibe* (Zetia*) 10 Mg Tablet, 10 MG PO HS, TAB 07/29/16 Omeprazole* (Omeprazole*) 40 Mg Capsule.dr, 40 MG PO DAILY, #30 CAP 07/29/16 Venlafaxine Hcl* (Venlafaxine Hcl ER*) 150 Mg Cap.er.24h, 150 MG PO DAILY, CAP 07/29/16 FABIEN BUNCH PA-C Oct 18, 2016 15:18
== END | disposition home or self-care (01) ==
LOC: HKI 14:21
DX: Z47.1 Aftercare following joint replacement surgery (principal); Z96.651 Presence of right artificial knee joint

== ENCOUNTER → 2016-11-08 | Outpatient (CLI) | payer OTHER ==
--- NOTE | 2016-11-08 14:31 | PN ---
Date/Time of Note Date/Time of Note DATE: 11/08/16 TIME: 14:26 Outpatient Progress Note Chief Complaint 6 week postoperative follow-up HPI 60-year-old male presents today for 6 week postoperative follow-up status post right total knee arthroplasty performed on 09/27/2016. Patient continues to improve as he states that he is back to his normal function. Patient feels significantly better than how he felt prior to surgery. He still has episodes of occasional/severe pain depending on level of activity. Patient is very happy as he is significantly cut down on the amount of pain medication he has been taking. He has not used [place] in the past 10 days. Denies any falls or injury. Patient states that numbness to the knee has improved. Denies any calf pain, chest pain/tightness or shortness of breath. Review of Systems Const: No Fever, no chills, no Fatigue, normal appetite, no diaphoresis. Resp: No SOB, no wheezing, no chest pain. CV: No chest pain, no palpitaions, no VARMA. Physical Exam Blood pressure is 141/86, temperature is 98.4, pulse is 88, respiratory rate is 14, height is 5 foot 8 inches, weight is 185 pounds. General Appearance: well-developed, well-nourished, in no acute distress. Right knee: Surgical wound continues to heal well. No signs of infection. A little bit of delayed healing to the middle third of the wound. Increased Eschar formation howeverPatient is able to flex up to 130 As shown on goniometer. About 5 lag from full extension. Gait is normal and nonantalgic. Patient is no longer having antalgic abnormal gait as he was prior to surgery. Normal sensory examination to light touch. No tenderness to palpation. 5/5 strength on resistance with flexion and extension. Toes freely movable. There is about 1+ edema to the right foot. Negative Homans sign Imaging X-ray of the Right knee performed on 11/08/2016 showing all components appearing well aligned, attached and integrated to the bone. No signs of any lucency between metal and bone. Allergies Coded Allergies: No Known Allergy (Unverified , 09/27/16) Assessment/Plan Problems: (1) Status post right knee replacement -Patient progressing well -Surgical wound continues to heal well. -No signs of infection or DVT on exam. -X-rays showing no abnormalities in regards to prosthesis attachment to bone. -Range of motion is improved status post total knee replacement. -Antibiotic prophylaxis card provided today. -Follow-up 6 months status post surgery. If patient is doing well at that time , possible follow-up on as-needed basis from that point. -Prescription for [place] 10/325 mg 1 tab p.o. every 8 hours as needed severe pain only #40 tablets provided today. Patient continues to decrease pain medication as there are no longer necessary. Patient was advised to continue with Mobic as needed for mild to moderate pain. -May discontinue aspirin 325 mg twice daily and continue with aspirin 81 mg once a day. Dental prophylaxis discussed in detail today. Should patient have allergy to specific medication (eg penicillin) alternative options are also provided on the card. Patient is aware that antibiotics should be taken prior to any procedures to prevent increased risk of infection to the joint. Patient is aware that this will be for the rest of their life. Patient states understanding and compliance. Medications Home Meds Active Scripts Cephalexin* (Cephalexin*) 500 Mg Capsule, 500 MG PO Q6, #28 CAP Prov:ANABELBRIA 10/10/16 Reported Medications Oxycodone Hcl* (Oxycontin*) 10 Mg Tab.sr.12h, 10 MG PO Q12, TAB 09/27/16 Fluticasone Propionate* (Fluticasone Propionate* Nasal) 50 Mcg/[place] - 16 Gm [place].susp, 1 SPRAY NASAL DAILY, #1 BOTTLE TO EACH NOSTRIL 07/29/16 Gabapentin* (Gabapentin*) 300 Mg Capsule, 900 MG PO BID Y for PAIN, #60 CAP 07/29/16 Tamsulosin Hcl* (Flomax*) 0.4 Mg Cap.er.24h, 0.4 MG PO DAILY, CAP 07/29/16 Atorvastatin* (Atorvastatin*) 80 Mg Tablet, 40 MG PO QHS, #30 TAB 07/29/16 Ezetimibe* (Zetia*) 10 Mg Tablet, 10 MG PO HS, TAB 07/29/16 Omeprazole* (Omeprazole*) 40 Mg Capsule.dr, 40 MG PO DAILY, #30 CAP 07/29/16 Venlafaxine Hcl* (Venlafaxine Hcl ER*) 150 Mg Cap.er.24h, 150 MG PO DAILY, CAP 07/29/16 FABIEN BUNCH PA-C Nov 08, 2016 14:31
--- NOTE | 2016-11-08 18:03 | RADRPT ---
PROCEDURE: Right knee radiographs. CLINICAL INDICATION: Right knee pain. Postop. TECHNIQUE: Three views. Weight bearing. Frontal, lateral, and patellar view. COMPARISON: 09/27/2016. FINDINGS: There is no fracture or dislocation. The soft tissues are normal. There is a total right knee history arthroplasty which appears satisfactory. There is no lytic or blastic lesion. IMPRESSION: 1. Satisfactory postoperative appearance of the right knee. RPTAT: QQ .Raheem Corral MD, MD Date Time Electronically viewed and signed by .Raheem Corral MD, MD on 11/08/2016 18:03 .R/
== END | disposition home or self-care (01) ==
LOC: HKI 13:56
DX: Z47.1 Aftercare following joint replacement surgery (principal); Z96.651 Presence of right artificial knee joint

== ENCOUNTER → 2017-02-08 | Outpatient (CLI) | END | disposition home or self-care (01) ==

== ENCOUNTER → 2017-02-21 | Outpatient (CLI) | END | disposition home or self-care (01) ==

== ENCOUNTER → 2017-06-06 | Outpatient (CLI) | END | disposition home or self-care (01) ==

== ENCOUNTER → 2017-08-15 | Outpatient (CLI) | END | disposition home or self-care (01) ==

== ENCOUNTER → 2017-10-27 | Outpatient (CLI) | END | disposition home or self-care (01) ==

== ENCOUNTER → 2017-11-21 | Outpatient (CLI) | END | disposition home or self-care (01) ==

== ENCOUNTER 2017-12-19 09:52 | Inpatient (IN) | END 2017-12-22 14:17 | disposition home health service (06) | DRG 454 ==

== ENCOUNTER → 2018-04-19 | Outpatient (CLI) | payer OTHER ==
[~2018-04-19] MED LIST changes: +AMLO5TAB4 PO; +ATOR-2 PO; -ATOR80TA75 PO; +BACL10TA PO; -CEPH500C PO; +DOCU-144 PO; -EZET10TA3 PO; +EZET10TA31 PO; +HYDR-4012 PO; -OXYC10TA63 PO; -TAMS-14 PO; +TAMS0.4C2 PO; -VENL150C94 PO; +VENL75CA89 PO
--- NOTE | 2018-04-19 15:11 | CONS ---
Consult Date/Type/Reason Admit Date/Time Initial Consult Date Date/Time of Note DATE: 04/19/18 TIME: 15:03 Subjective This is a 62-year-old male previously seen by my partner for follow-up for right TKA. He now presents with a new problem of left knee pain. The left knee pain began approximately 1 month ago. It began without injury. He notes significant swelling to the knee. He does state it was warm. Denies fevers and chills. Denies any history of infection. Denies any history of gout or pseudogout. The patient does have history of kidney stones. The swelling has gone down and the knee is less warm. It is painful to walk on his knee. He does admit to a limp. It is difficult to bend his knee. He is to take meloxicam however he has not taken meloxicam since he has had spinal surgery approximately 4-1/2 months ago. Denies mechanical symptoms. Pain is 7/10. Objective Vitals Patient denies fever, chills, shortness of breath, chest pain, nausea/vomiting, constipation, diarrhea, numbness, and tingling. Exam General: Alert, oriented x3. No Acute Distress. Heart: Regular rate and rhythm. Lungs: No respiratory distress. No accessory muscle use. Musculoskeletal: Left Knee This is a well developed male who is alert, oriented times three and in no apparent distress. Skin is intact over the left knee as well as the lower extremity with no abrasions, lacerations, or ulcerations. Observation of the patient's gait reveals an antalgic gait with No thrust. Frontal plane alignment is neutral. There is pain on palpation of lateral aspect of the knee. The knee is slightly warm. There is a 2+ effusion. Range of motion: 0 extension to approximately 120 degrees of flexion. Pain with deep flexion otherwise pain- free range of motion. Collateral ligament testing reveals no instability with varus or valgus stress at 0 and 30 degrees of flexion. Negative Andria's and negative posterior drawer. Neurovascularly intact with 5/5 EHL/tibialis anterior/gastroc. Sensation intact to light touch in a sural, saphenous, deep peroneal, superficial peroneal, medial and lateral plantar nerve distribution. Palpable, symmetric dorsalis pedis and posterior tibial pulses in both lower extremities. Hip examination normal. Results/Medications Home Meds Active Scripts Docusate Sodium* (Colace*) 100 Mg Capsule, 100 MG PO BID, #30 CAP Prov:SABI MCDERMOTT 12/22/17 Hydrocodone/Acetaminophen ([place] 7.5-325 Tablet) 1 Each Tablet, 1 EACH PO Q4, #60 TAB Prov:SABI MCDERMOTT 12/22/17 Reported Medications Fluticasone Propionate* (Fluticasone Propionate* Nasal) 50 Mcg/[place] - 16 Gm [place].susp, 1 SPRAY NASAL DAILY, #1 BOTTLE TO EACH NOSTRIL 12/19/17 Baclofen* (Baclofen*) 10 Mg Tablet, 10 MG PO DAILY, TAB 12/19/17 Gabapentin* (Gabapentin*) 300 Mg Capsule, 300 MG PO QID, #90 CAP 12/19/17 Tamsulosin Hcl* (Tamsulosin Hcl*) 0.4 Mg Cap.er.24h, 0.4 MG PO HS, CAP 12/19/17 Atorvastatin* (Atorvastatin*) 80 Mg Tablet, 80 MG PO QHS, #30 TAB 12/19/17 Ezetimibe* (Zetia*) 10 Mg Tablet, 10 MG PO HS, TAB 12/19/17 Amlodipine Besylate* (Norvasc*) 5 Mg Tablet, 5 MG PO DAILY, TAB 12/19/17 Omeprazole* (Omeprazole*) 40 Mg Capsule.dr, 40 MG PO DAILY, #30 CAP 12/19/17 Venlafaxine Hcl* (Venlafaxine Hcl ER*) 75 Mg Cap.er.24h, 75 MG PO DAILY, CAP 12/19/17 Imaging The patient received a standard set of films today that were personally reviewed. Imaging included a standing bilateral knee AP, PA flexion, merchant views and a dedicated lateral of the affected knee: There is neutral alignment of the knee. There is no loss of joint space in any compartment(s). There is no osteophyte formation. There is no subchondral sclerosis. There are no subchondral cysts. No fracture. No chondrocalcinosis appreciated. There is a joint effusion. Assessment/Plan Hospital Course (Demo Recall) 62-year-old male with left knee pain and swelling with no history of infection or injury. Given the effusion and warmth it is possible the patient may be having an gout or pseudogout attack. At this time we are going to obtain ESR, CRP, CBC with differential. We will place an urgent authorization for aspiration and also possible injection of cortisone depending on lab results and synovial fluid. In the meantime I asked him to discuss with his spine surgeon if it was safe for him to take anti-inflammatories as they may be waiting for complete bony fusion prior to starting NSAIDs. Follow-up Monday For aspiration and possible injection of the left knee. JOSE CRUZ BARDALES MD Apr 19, 2018 15:11
--- NOTE | 2018-04-21 06:41 | RADRPT ---
PROCEDURE: Bilateral knee study CLINICAL INDICATION: Pain TECHNIQUE: AP weightbearing, PA 45 degrees flexed weightbearing, lateral weightbearing and sunrise views were obtained of both knees. COMPARISON: Right knee study 11/21/2017 FINDINGS: There is an unremarkable total right knee prosthesis. No evidence of acute fractures or dislocations. No focal bony blastic or lytic lesions. Mild degenerate joint disease left knee. Bilateral suprapate llar knee joint effusions. Soft tissues are otherwise unremarkable. IMPRESSION: 1. Unremarkable total right knee prosthesis. 2. No acute fractures or dislocations. 3. Bilateral small suprapatellar knee joint effusions. RPTAT:AAJJ Physician Martha Date Time Electronically viewed and signed by Kimberly Colmenares Physician on 04/21/2018 06:40 /
== END | disposition home or self-care (01) ==
LOC: HKI 13:55
PROVIDERS: ATTEND Orthopaedic Surgery Adult Reconstructive Orthopaedic Surgery
DX: M25.562 Pain in left knee (principal)
CPT/HCPCS: 73564; G0463

== ENCOUNTER → 2018-04-26 | Outpatient (CLI) | payer OTHER ==
--- NOTE | 2018-04-26 16:50 | CONS ---
Consult Date/Type/Reason Admit Date/Time Initial Consult Date Date/Time of Note DATE: 04/26/18 TIME: 16:46 Subjective 62-year-old male follows up today for left knee pain and swelling. He was seen 1 week ago and at that time he had an acute onset of knee pain and swelling. 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 However given the possibility although low, for infection labs were ordered. ESR, CRP, WBC returned back within normal limits. An appointment was set up for him to come back to the clinic for aspiration and steroid injection. In the interim he states his knee feels significantly better and he has minimal pain. The swell ing continues to decrease as well. This time he would like to continue to observe his knee without aspiration/injection. Objective Exam Left general: Awake, alert, in no acute distress, pleasant and cooperative Heart: regular rhythm Lungs: breathing comfortably, no tachypnea or dyspnea MUSCULOSKELETAL: Knee: Skin is intact. No erythema. No warmth. There is a 2+ effusion. Nontender to palpation throughout the knee. Range of motion 0-140. Ligamentously stable. Sensation intact to light touch in a sural, saphenous, deep peroneal, superficial peroneal, medial and lateral plantar nerve distribution. Motor is intact, patient able to dorsiflex and plantarflex ankle and extend and flex great toe. Dorsalis Pedis pulse +2, Brisk capillary refill. Compartments are soft. Calves non-tender to palpation bilaterally. Results/Medications Home Meds Active Scripts Docusate Sodium* (Colace*) 100 Mg Capsule, 100 MG PO BID, #30 CAP Prov:SABI MCDERMOTT 12/22/17 Hydrocodone/Acetaminophen ([place] 7.5-325 Tablet) 1 Each Tablet, 1 EACH PO Q4, #60 TAB Prov:SABI MCDERMOTT 12/22/17 Reported Medications Fluticasone Propionate* (Fluticasone Propionate* Nasal) 50 Mcg/[place] - 16 Gm [place].susp, 1 SPRAY NASAL DAILY, #1 BOTTLE TO EACH NOSTRIL 12/19/17 Baclofen* (Baclofen*) 10 Mg Tablet, 10 MG PO DAILY, TAB 12/19/17 Gabapentin* (Gabapentin*) 300 Mg Capsule, 300 MG PO QID, #90 CAP 12/19/17 Tamsulosin Hcl* (Tamsulosin Hcl*) 0.4 Mg Cap.er.24h, 0.4 MG PO HS, CAP 12/19/17 Atorvastatin* (Atorvastatin*) 80 Mg Tablet, 80 MG PO QHS, #30 TAB 12/19/17 Ezetimibe* (Zetia*) 10 Mg Tablet, 10 MG PO HS, TAB 12/19/17 Amlodipine Besylate* (Norvasc*) 5 Mg Tablet, 5 MG PO DAILY, TAB 12/19/17 Omeprazole* (Omeprazole*) 40 Mg Capsule.dr, 40 MG PO DAILY, #30 CAP 12/19/17 Venlafaxine Hcl* (Venlafaxine Hcl ER*) 75 Mg Cap.er.24h, 75 MG PO DAILY, CAP 12/19/17 Assessment/Plan Hospital Course (Demo Recall) This is a 62-year-old male who 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 He is much better today. He has minimal symptoms. Workup was negative for infection. Given that the patient's symptoms have improved significantly he would like to defer any aspiration of the remaining fluid and injection today. This is a reasonable plan. Plan: Ice continue to rest knee. Follow-up JOSE CRUZ WATSON MD Apr 26, 2018 16:50
== END | disposition home or self-care (01) ==
LOC: HKI 14:29
PROVIDERS: ATTEND Orthopaedic Surgery Adult Reconstructive Orthopaedic Surgery
DX: M25.562 Pain in left knee (principal); M79.89 Other specified soft tissue disorders
CPT/HCPCS: G0463

== ENCOUNTER → 2018-05-03 | Outpatient (CLI) | payer OTHER ==
--- NOTE | 2018-05-03 17:01 | CONS ---
Consult Date/Type/Reason Admit Date/Time Initial Consult Date Date/Time of Note DATE: 05/03/18 TIME: 16:57 Subjective 62-year-old male following up in clinic today for aspiration injection of left knee. He had an effusion and significant knee pain on examination. Inflammatory markers and WBC count obtained at previous visit were normal therefore authorization for steroid injection was obtained. He likely has OA flareup versus a crystal arthropathy. Compared to last visit his swelling has became worse and he has less range of motion. His pain is worse. Denies numbness and tingling denies fevers and chills. Objective Exam General: Alert, oriented x3. No Acute Distress. Heart: Regular rate and rhythm. Lungs: No respiratory distress. No accessory muscle use. Musculoskeletal: Left Knee This is a well developed male who is alert, oriented times three and in no apparent distress. Skin is intact over the left knee as well as the lower extremity with no abrasions, lacerations, or ulcerations. Observation of the patient's gait reveals an antalgic gait with No thrust. Frontal plane alignment is neutral. There is pain on palpation of lateral aspect of the knee. The knee is not warm. There is a 3+ effusion. Range of motion: 0 extension to approximately 110 degrees of flexion. Pain with deep flexion otherwise pain- free range of motion. Collateral ligament testing reveals no instability with varus or valgus stress at 0 and 30 degrees of flexion. Negative Andria's and negative posterior drawer. Neurovascularly intact with 5/5 EHL/tibialis anterior/gastroc. Sensation intact to light touch in a sural, saphenous, deep peroneal, superficial peroneal, medial and lateral plantar nerve distribution. Palpable, symmetric dorsalis pedis and posterior tibial pulses in both lower extremities. Hip examination normal. Results/Medications Home Meds Active Scripts Docusate Sodium* (Colace*) 100 Mg Capsule, 100 MG PO BID, #30 CAP Prov:SABI MCDERMOTT 12/22/17 Hydrocodone/Acetaminophen ([place] 7.5-325 Tablet) 1 Each Tablet, 1 EACH PO Q4, #60 TAB Prov:SABI MCDERMOTT 12/22/17 Reported Medications Fluticasone Propionate* (Fluticasone Propionate* Nasal) 50 Mcg/[place] - 16 Gm [place].susp, 1 SPRAY NASAL DAILY, #1 BOTTLE TO EACH NOSTRIL 12/19/17 Baclofen* (Baclofen*) 10 Mg Tablet, 10 MG PO DAILY, TAB 12/19/17 Gabapentin* (Gabapentin*) 300 Mg Capsule, 300 MG PO QID, #90 CAP 12/19/17 Tamsulosin Hcl* (Tamsulosin Hcl*) 0.4 Mg Cap.er.24h, 0.4 MG PO HS, CAP 12/19/17 Atorvastatin* (Atorvastatin*) 80 Mg Tablet, 80 MG PO QHS, #30 TAB 12/19/17 Ezetimibe* (Zetia*) 10 Mg Tablet, 10 MG PO HS, TAB 12/19/17 Amlodipine Besylate* (Norvasc*) 5 Mg Tablet, 5 MG PO DAILY, TAB 12/19/17 Omeprazole* (Omeprazole*) 40 Mg Capsule.dr, 40 MG PO DAILY, #30 CAP 12/19/17 Venlafaxine Hcl* (Venlafaxine Hcl ER*) 75 Mg Cap.er.24h, 75 MG PO DAILY, CAP 12/19/17 Assessment/Plan Hospital Course (Demo Recall) 62-year-old male follows up today for left knee pain and swelling. His effusion has become larger. Infection workup is so far negative with inflammatory markers within normal limits. Therefore I am recommending aspiration and steroid injection. He agrees with this plan. Plan: Aspiration of left knee with injection of steroid Send fluid for cell count with differential, cultures aerobic and anaerobic, Gram stain, crystals Ice Rest Will call patient with results. Follow-up will depend on results. Assessment/Plan (Daily) Left knee aspiration procedure: Risks and benefits aspiration reviewed with patient. The risks include infection, failure, pain, swelling, nerve/tendon/ligament damage. The patient verbalized understanding and verbal consent was obtained prior to procedure. The left knee was prepped in a sterile fashion with alcohol and betadine the s ite of aspiration was confirmed. Lateral approach was used. The skin and capsule was anesthetized with 3mL 1% lidocaine careful not to inject intra- articularly. The left knee was aspirated. 18 mL of blood-tinged synovial fluid was aspirated. The left knee was injected with 2mL 1% lidocaine, 2mL 0.25% bupivacaine, 40mg Depo-Medrol. Injection flowed freely. Good hemostasis was ac hieved and no complications noted. The patient tolerated the procedure well. Limit activity and ice for 24-48 hours JOSE CRUZ BARDALES MD May 03, 2018 17:01
== END | disposition home or self-care (01) ==
LOC: HKI 15:26
PROVIDERS: ATTEND Orthopaedic Surgery Adult Reconstructive Orthopaedic Surgery
DX: M17.12 Unilateral primary osteoarthritis, left knee (principal); M25.562 Pain in left knee
CPT/HCPCS: 20610; Z7500; Z7610; G0463